=== PATIENT | male | born 1975 | race Caucasian/White ===

== ENCOUNTER 2021-01-10 09:23 | Outpatient (REF) | payer MEDICAID, SELFPAY ==
--- NOTE | ~2021-01-10 | XR_ITS ---
EXAMINATION: BILATERAL SHOULDER X-RAY CLINICAL INFORMATION: Pain COMPARISON: Previous x-rays August 2018 TECHNIQUE: 4 views of each shoulder FINDINGS: Right: Bone alignment is normal. No fracture or dislocation is seen. The glenohumeral joint is normal. There is mild arthritis at the acromioclavicular joint. Soft tissues are unremarkable. Left: Bone alignment is normal. No fracture or dislocation is seen. The joint spaces are normal. Soft tissues are normal. XR/XR shoulder LT min 2V IMPRESSION: Right: Mild arthritis at the acromioclavicular joint. Left: Unremarkable exam.
--- NOTE | ~2021-01-10 | XR_ITS ---
EXAMINATION: BILATERAL ELBOW X-RAY CLINICAL INFORMATION: Pain COMPARISON: None TECHNIQUE: 3 views of each elbow FINDINGS: Bone alignment is normal. No fracture or dislocation is seen. The joint spaces are normal. There is no joint effusion. XR/XR elbow RT min 3V IMPRESSION: Normal bilateral elbows.
--- NOTE | ~2021-01-10 | XR_ITS ---
EXAMINATION: XR CERVICAL SPINE CLINICAL INFORMATION: Worsening shoulder pain radiating to neck and elbow COMPARISON: None TECHNIQUE: 5 views of the cervical spine, inclusive of bilateral oblique views, were obtained. FINDINGS: There is mild curvature of the mid cervical spine to the right and lower cervical and upper thoracic spine to the left. Bone alignment is otherwise normal. No fracture or dislocation is seen. There is degenerative spondylosis and degenerative disc disease at C3-C4 and C6-C7. There is bilateral neuroforaminal narrowing at C3-C4 and mild right-sided neuroforaminal narrowing at C6-C7. Prevertebral soft tissues are normal.. XR/XR cervical spine min 6V IMPRESSION: Degenerative changes at C3-C4 and C6-C7. Mild curvature of the cervical spine.
--- NOTE | ~2021-01-10 | XR_ITS ---
EXAMINATION: BILATERAL ELBOW X-RAY CLINICAL INFORMATION: Pain COMPARISON: None TECHNIQUE: 3 views of each elbow FINDINGS: Bone alignment is normal. No fracture or dislocation is seen. The joint spaces are normal. There is no joint effusion. XR/XR elbow LT min 3V IMPRESSION: Normal bilateral elbows.
--- NOTE | ~2021-01-10 | XR_ITS ---
EXAMINATION: BILATERAL SHOULDER X-RAY CLINICAL INFORMATION: Pain COMPARISON: Previous x-rays August 2018 TECHNIQUE: 4 views of each shoulder FINDINGS: Right: Bone alignment is normal. No fracture or dislocation is seen. The glenohumeral joint is normal. There is mild arthritis at the acromioclavicular joint. Soft tissues are unremarkable. Left: Bone alignment is normal. No fracture or dislocation is seen. The joint spaces are normal. Soft tissues are normal. XR/XR shoulder RT min 2V IMPRESSION: Right: Mild arthritis at the acromioclavicular joint. Left: Unremarkable exam.
== END 2021-01-10 09:24 | disposition home or self-care (01) ==
LOC: HO.XRAY 09:23
PROVIDERS: PCP Family Medicine; Visit Provider Family Medicine
DX: M25.512 Pain in left shoulder (principal); M25.511 Pain in right shoulder; M54.2 Cervicalgia; M25.522 Pain in left elbow; M25.521 Pain in right elbow
CPT/HCPCS: 72052; 73030; 73080

== ENCOUNTER 2021-10-18 16:00 | Outpatient (RCR) | payer MEDICAID, SELFPAY | END 2021-11-03 16:11 | disposition home or self-care (01) | LOC: HO.PT 16:00 | PROVIDERS: PCP Family Medicine; Visit Provider Family Medicine | DX: M25.511 Pain in right shoulder (principal) | CPT/HCPCS: 97110; 97161 ==

== ENCOUNTER → 2023-02-20 13:12 | Outpatient (BNVA) | payer MEDICAID, SELFPAY | PROVIDERS: PCP Family Medicine; Visit Provider Physician Assistant | DX: Z12.11 Encounter for screening for malignant neoplasm of colon (principal); K21.9 Gastro-esophageal reflux disease without esophagitis; K59.09 Other constipation; F41.9 Anxiety disorder, unspecified | CPT/HCPCS: 99202; 99212 ==

== ENCOUNTER 2023-08-21 13:32 | Outpatient (REF) | payer MEDICAID, SELFPAY ==
[2023-08-21 16:10] LABS: MANUAL DIFF FLAG NO
[2023-08-21 16:14] LABS: Basophils Percent Auto 0.5 % (0-2); Eosinophils Absolute Auto 0.2 X10*3/uL (0.0-0.4); Eosinophils Percent Auto 2.7 % (0-4); Hematocrit 42.1 % (42.0-52.0); Hemoglobin 14.9 g/dl (14.0-18.0); Imm Gran Abs Auto 0.02 X10*3/uL (0.00-0.03); Imm Gran Pct Auto 0.2 % (0.0-0.4); Lymphocytes Absolute Auto 2.5 X10*3/uL (1.2-4.9); Lymphocytes Percent Auto 29.3 % (20-40); Mean Corpuscular HGB Conc 35.4 g/dl (31.0-36.0); Mean Corpuscular Hemoglobin 30.8 pg (27.0-33.0); Mean Corpuscular Volume 87.2 fL (80.0-98.0); Mean Platelet Volume 11.9 fL (9.4-12.4); Monocytes Absolute Auto 0.7 X10*3/uL (0.1-1.2); Monocytes Percent Auto 8.7 % (2-11); Neutrophils Percent Auto 58.6 % (45-73); Platelet Count 268 X10*3/uL (160-400); Red Blood Count 4.83 X10*6/uL (4.60-5.80); Red Cell Distribution Width 12.6 % (11.0-16.0); White Blood Count 8.5 X10*3/uL (4.8-10.8)
[2023-08-21 16:35] LABS: Alanine Aminotransferase 23 U/L (0-40); Albumin Level 4.5 g/dL (3.5-5.0); Alkaline Phosphatase 68 U/L (39-117); Anion Gap 13 (12-20); Aspartate Amino Transferase 17 U/L (5-37); Bilirubin Direct 0.2 mg/dL (0.0-0.5); Bilirubin Total 0.5 mg/dL (0.0-1.0); Blood Urea Nitrogen 16 mg/dL (9-16); Calcium 9.7 mg/dL (8.4-10.2); Carbon Dioxide 25 mmol/L (22-29); Chloride 106 mmol/L (96-108); Cholesterol 169 mg/dL (<200); Estimated Glomerular Filt Rate > 60; Glucose Random 102 mg/dL (60-115); HDL Cholesterol 39 mg/dL (>40); LDL Cholesterol Calculated 79 mg/dL (<100); Potassium 3.9 mmol/L (3.3-5.1); Sodium 140 mmol/L (135-145); Total Protein 7.5 g/dL (6.5-8.0); Triglycerides 256 mg/dL (<150)
[2023-08-21 16:46] LABS: Free T4 (Free Thyroxine) 0.97 ng/dL (0.71-1.85); Thyroid Stimulating Hormone 2.58 uIU/mL (0.32-4.0); Vitamin D 25-OH Total 71.8 ng/mL (>30)
[2023-08-21 16:48] LABS: Estimated Average Glucose 100 mg/dL; Hemoglobin A1c % 5.1 % (<6.0)
[2023-08-21 18:32] LABS: CT PCR NOT DETECTED (Not Detect.); NG PCR NOT DETECTED (Not Detect.)
[2023-08-22 07:55] LABS: Syphilis Screen Nonreactive (Nonreactive)
[2023-08-22 09:35] LABS: HIV AB/AG Nonreactive (Nonreactive); HIV Num 1 0.04 S/CO (0.00-0.99); ~HepC Num1 13.33 S/CO (0.00-0.79); ~Hepatitis C Antibody Reactive (Nonreactive)
[2023-08-26 15:08] LABS: HCV Log PCR <1.18 NOT DETECTED Log IU/mL (NOT DETECTED); HepC Viral Load <15 NOT DETECTED IU/mL (NOT DETECTED)
== END 2023-08-21 13:33 | disposition home or self-care (01) ==
LOC: HO.HHCL 13:32
PROVIDERS: Visit Provider Family Medicine
DX: Z00.00 Encounter for general adult medical examination without abnormal findings (principal)
CPT/HCPCS: 0353U; 80048; 80061; 80076; 82306; 83036; 84439; 84443; 85025; 86780; 86803; 87389; 87522

== ENCOUNTER 2024-01-08 06:46 | Day surgery (SDC) | payer MEDICAID, SELFPAY ==
[2024-01-02 14:10] VITALS: BMI 32.2
[2024-01-08 07:12] VITALS: BP 122/97; PULSE 67; RESP 18; TEMP 36.1; O2SAT 97; BMI 27.9
[2024-01-08] MEDS: Lactated Ringers 1,000 ML 50 ML IVCONT (07:29)
--- NOTE | 2024-01-08 07:48 | P.HPSUR_ITS ---
Pre-Procedural Eval Section A - 24 Hr Update-Section A only Date of Service: 01/08/24 Section B - Complete if H&P > 30 days Chief Complaint: constipation,gerd, Details of Present Illness: screening Relevant Family History (Specify if Yes): No Relevant Social History: Other (specify) (THC) Present Medications: see Short Stay Collaborative assessment Medical History: Significant History (anxiety, GERD) History of Previous Operations: No relevant previous surgery Allergies: Allergies Allergy/AdvReac Type Severity Reaction Status Date / Time penicillin V Allergy Unknown unknown Verified 02/20/23 13:17 Review of Systems Sugical H&P ROS: Negative: Constitution, Cardiovascular, Respiratory, Neurological, Psychiatric, Hem-Onc, Allergic/Immunologic, Gastrointestinal, Genitourinary, Musculoskeletal, Integumentary, Endocrine and Eyes/Ea rs/Nose/Throat Exam Surgical H&P Exam: Normal: HEENT, Normal: Heart, Normal: Lungs, Normal: Extremities, Normal: Abdomen, Normal: Skin and Normal: Neurological Plan Diagnosis/Plan: Unchanged I have reviewed the history and physical and performed a pertinent physical examination on my patient. No changes have occurred unless specified. Time Spent With Patient Time: Total time managing care of this patient today ____ minutes.
--- NOTE | 2024-01-08 08:09 | W.PM.OPN ---
Operative Note Operative Note Date of Service: 01/08/24 Narrative: Operative Information Procedure Description: EGD, Colonoscopy Indication: Screening, GERD Anesthesia: MAC FLEXIBLE TRANSORAL UPPER GASTROINTESTINAL ENDOSCOPY AND COLONOSCOPY PROCEDURE NOTE UPPER ENDOSCOPY Consent: Indications for the procedure and potential complications of bleeding, perforation, reaction to medications and missed diagnosis were discussed with the patient and informed consent was obtained. Instrument: Olympus GIF H 190 J mid size upper endoscope Monitoring: Vital signs and clinical assessment, continuous EKG monitoring, Pulse oximetry, Carbon Dioxide monitoring and blood pressure monitoring were done throughout the procedure. Procedure: The patient was placed in the left lateral decubitis position and pre-procedure medications were administered and a bite block was placed. The endoscope was inserted into the mouth and advanced under direct vision to the third part of duodenum. A careful inspection was made as the upper endoscope was withdrawn including a retroflexed examination of the proximal stomach; Findings and interventions are described below. Findings: Larynx:normal Esophagus: GE junction at 38 cm, diaphragm hiatus at 38 cm, possible short segment barretts with few islands of salmon pink tissue, bx taken from GEJ, and distal and proximal esophagus Stomach: Mild erythema, Biopsies were obtained. Grade 2 flap valve on retroflexed examination of the cardia. Duodenum: Normal bulb and descending duodenum, Intervention: Biopsies as noted above COLONOSCOPY Instrument: Olympus variable stiffness pediatric scope 190L Colonoscopy Monitoring: Vital signs and clinical assessment, continuous EKG monitoring, Pulse oximetry, Carbon Dioxide monitoring and blood pressure monitoring were done throughout the procedure. Colon withdrawal time was 8 minutes. Procedure: The patient was placed in the left lateral decubitis position and pre-procedure medications were administered. After a digital rectal examination of the ano-rectum, the video colonoscope was inserted into the rectum and advanced through the colon to the cecum/TI. The colonoscope was slowly withdrawn in a retrograde panoramic fashion and the colon mucosa was carefully examined including a retroflexed view of the rectum. Findings and interventions are described below. Procedure Difficulty:easy Findings: Terminal Ileum-normal Cecum:normal Right sided retroflexion- normal Ascending Colon: normal Transverse Colon -normal Descending Colon:normal Sigmoid Colon: mild to modertqae diverticulosis Rectum: Retroflexion with medium sized inflammed internal hemorrhoids, grade I Anorectum - normal Colon preparation: [place] Bowel Preparation Scale Right colon; 2 Transverse colon: 3 Left colon; 3 (0 = Unprepared colon segment with mucosa not seen due to solid stool that cannot be cleared. 1 = Portion of mucosa of the colon segment seen, but other areas of the colon segment not well seen due to staining, residual stool and/or opaque liquid. 2 = Minor amount of residual staining, small fragments of stool and/or opaque liquid, but mucosa of colon segment seen well. 3 = Entire mucosa of colon segment seen well with no residual staining, small fragments of stool or opaque liquid) Impression and Post Procedure Diagnosis: Endoscopy Findings: mild gastritis possible barretts Colonoscopy Findings: internal hemorrhoids diverticular disease Plan: Await Pathology results Repeat Colonoscopy in 10 years or earlier if clinically indicated High fiber diet leaflet avoid straining at stool, epsom salts and sitz bath, anusol supps or cream GERd precautions repeat EGD in 3-5 yrs if barretts confirmed Above findings were reviewed with the patient and relevant handouts were provided if indicated.
--- NOTE | 2024-01-08 08:10 | HO.ANESPROP2 ---
HPI - Anesthesia Eval Consult details Narrative: 48-year-old male presenting for routine colonoscopy screening. Daily marijuana smoking. On Vivitrol injection monthly. PMFSH Active Problems Active Problems: All Active Problems Chronic constipation (Acute) Anxiety (Acute) Encounter for screening colonoscopy (Acute) Acid reflux (Acute) Past Medical History Medical History Alcohol dependence Hepatitis C GERD (gastroesophageal reflux disease) Family History Family history of problems with anesthesia: No Surgical History History of Problems with Anesthesia: No Social History Social History Household Members: Family Alcohol intake: never Patient Tobacco Use Status: Former Tobacco user Are you DNR?: No Advance Directives: No Advance Directives Information Provided: Yes Meds Allergies Allergy/AdvReac Type Severity Reaction Status Date / Time penicillin V Allergy Unknown unknown Verified 02/20/23 13:17 Active Medications: Current Medications Lactated Ringer's (Lr) 1,000 mls @ 50 mls/hr IVCONT .Q20H MELISSA Last Admin: 01/08/24 07:29 Dose: 50 mls/hr Home Medications Medication Instructions Recorded Confirmed Last Taken Type omeprazole 20 mg capsule,delayed 20 mg PO DAILY 02/20/23 02/20/23 01/08/24 History release emtricitabine 200 mg-tenofovir 1 tab PO QAM 01/08/24 01/08/24 Unknown History alafenamide fumarate 25 mg tablet (Descovy) naltrexone microspheres 380 mg 4 IM Q4W 01/08/24 01/08/24 Unknown History intramuscular suspension,extended release (Vivitrol) quetiapine 25 mg tablet 25 mg PO BEDTIME 01/08/24 01/08/24 Unknown History Exam Height,Weight and Vital Signs: Height 5 ft 3 in Weight 157 lb 4.8 oz Last Vital Signs Temp 97 F 01/08/24 07:12 Pulse 67 01/08/24 07:12 Resp 18 01/08/24 07:12 BP 122/97 H 01/08/24 07:12 Pulse Ox 97 01/08/24 07:12 O2 Del Method Room Air 01/08/24 07:12 Airway Mallampati Class: II TM Dist: >3cm Neck ROM: Full Loose/Missing/Broken Teeth: No Assessment and Plan Assessment Anesthesia Assessment: Anesthesia Plan Discussed and Chart Reviewed Final Anesthetic Review Family History of Problems with Anesthesia: No History of Problems with Anesthesia: No NPO: Yes ASA Class: II Final Preanesthetic Review: No Changes in Pt Med Stat, Meds/Allgs Chart Reviewed, Consent Obtained/Reviewed and Anes Risks/Benef Reviewed Patient Risk: Low Procedure Risk: Low Anesthetic Plan Anesthetic Plan: MAC: Disposition: Standard PACU
[2024-01-08 08:42] VITALS: BP 93/57; PULSE 66; RESP 17; TEMP 36.9; O2SAT 99
[2024-01-08 08:57] VITALS: BP 96/66; PULSE 57; RESP 17; O2SAT 99
[2024-01-08 09:12] VITALS: BP 99/72; PULSE 58; RESP 18; TEMP 37; O2SAT 95
[2024-01-08 09:27] VITALS: BP 100/74; PULSE 56; RESP 16; TEMP 36.1; O2SAT 98
== END 2024-01-08 09:52 | disposition home or self-care (01) ==
PROVIDERS: PCP Family Medicine; Visit Provider Internal Medicine Gastroenterology
PROC: (CPT 45378; principal; 2024-01-08 08:40)
DX: Z12.11 Encounter for screening for malignant neoplasm of colon (principal); K59.09 Other constipation; K62.5 Hemorrhage of anus and rectum; K57.30 Diverticulosis of large intestine without perforation or abscess without bleeding; K64.0 First degree hemorrhoids; K21.9 Gastro-esophageal reflux disease without esophagitis; K29.60 Other gastritis without bleeding; Q39.8 Other congenital malformations of esophagus; K44.9 Diaphragmatic hernia without obstruction or gangrene; F41.9 Anxiety disorder, unspecified; Z79.899 Other long term (current) drug therapy; Z88.0 Allergy status to penicillin; F17.210 Nicotine dependence, cigarettes, uncomplicated
CPT/HCPCS: 45378; 43239; 88305; 88313; 88342; J2704

== ENCOUNTER → 2024-01-08 06:46 | Outpatient (BNV) | payer MEDICAID, SELFPAY | PROVIDERS: PCP Family Medicine; Visit Provider Internal Medicine Gastroenterology | DX: K29.70 Gastritis, unspecified, without bleeding (principal); K22.70 Barrett's esophagus without dysplasia; K57.90 Diverticulosis of intestine, part unspecified, without perforation or abscess without bleeding; K64.8 Other hemorrhoids | CPT/HCPCS: 43239; 45378 ==

== ENCOUNTER 2024-01-22 14:20 | Outpatient (AMB) | payer MEDICAID, SELFPAY ==
--- NOTE | 2024-01-22 14:24 | A.OFFVIS_ITS ---
Intake Vital Signs 01/22/24 14:28 Weight 165 lb BP 139/92 H Blood Pressure Location Lt brachial Position Sitting Pulse 93 Intake Visit Reasons: S/P Double; Dr. Sweeney Intake Note: Patient follow up for EGD/Colonoscopy results. Patient cc: beteen diarrhea and constipation, denies any other GI issues. Webmaster Required: No Accompanied by: Self / Same As Patient Allergies penicillin V Allergy (Unknown, Verified 02/20/23 13:17) unknown Medication List - Last Reconciled 01/22/24 by Becki Lloyd PA-C emtricitabine-tenofovir alafen 200-25 mg (Descovy) 1 tab PO QAM naltrexone microspheres ER (Vivitrol) 4 IM Q4W omeprazole 20 mg PO DAILY quetiapine 25 mg PO BEDTIME HPI HPI Comments History of Present Illness Details 48-year-old male follows up after recent EGD and colonoscopy with biopsies. Tolerated procedures well He has persistent acid reflux unsure what triggers his symptoms He has a normal bowel pattern he uses Citrucel daily with very good response Reviewed procedure report, pathology as well as recommended Has a nausea, vomiting hematemesis, hematochezia fever chills PFSH Medical History (Updated 01/22/24 @ 14:42 by Becki Lloyd PA-C) Alcohol dependence Hepatitis C GERD (gastroesophageal reflux disease) Surgical History Hx of colonoscopy History of esophagogastroduodenoscopy (EGD) Social History (Updated 01/22/24 @ 14:43 by Becki Lloyd PA-C) Household Members: Family Alcohol intake: never Patient Tobacco Use Status: Former Tobacco user Substance Use Type: Marijuana Review of Systems Const Details: All other systems reviewed and are negative Card Denies chest pain and Denies dyspnea Resp Denies dyspnea GI Reports heartburn Physical Exam Vital Signs: Last Vital Signs Pulse 93 01/22/24 14:28 BP 139/92 H 01/22/24 14:28 Const General: cooperative, healthy appearing, comfortable and no acute distress Orientation/consciousness: patient oriented x3 Limitations: no limitations Resp Effort & Inspection: normal respiratory effort and able to speak in complete sentences Neuro General: patient oriented x3 Extrem General: Yes full ROM Psych Appearance: grossly normal and well kempt Mental Status: mental status grossly normal Speech and movement: Normal speech and movement present Affect: normal affect and Anxious affect present Attitude: cooperative Thought process: Normal thought process present Thought content: Normal thought content present Insight: Good insight present (Psych) Judgement: Good judgement present (Psych) Results Reviewed Results Reviewed: Endoscopy Findings: mild gastritis possible barretts Colonoscopy Findings: internal hemorrhoids diverticular disease Plan: Await Pathology results Repeat Colonoscopy in 10 years or earlier if clinically indicated High fiber diet leaflet avoid straining at stool, epsom salts and sitz bath, anusol supps or cream GERd precautions repeat EGD in 3-5 yrs if barretts confirmed Above findings were reviewed with the patient and relevant handouts were provided if indicated. padmaja: Eddie Worthington Age/Sex: 48/M Attending: Kacie Sweeney MD : 1975 Submitted by: Kacie Sweeney MD Copies to: Amparo Interianonifarzana Haynes DO MR #: [id number] Status: [facility] Collected: 01/08/24 Location: [facility] [[email or web address]] Received: 01/08/24 Diagnosis A. Stomach, biopsy: Antral-type mucosa with moderate chronic, focally active, inflammation; no Helicobacter organisms seen. B. GE junction, biopsy: - Cardiofundic-type mucosa with moderate chronic inactive inflammation; no intestinal metaplasia seen. - Squamous epithelium within normal limits. C. Esophagus, distal, biopsy: Squamous epithelium within normal limits; no inflammation seen. D. Esophagus, proximal, biopsy: Squamous epithelium within normal limits; no inflammation seen. Assessment & Plan Assessment & Plan (1) Diverticulosis of colon: Code(s): K57.30 - Diverticulosis of large intestine without perforation or abscess without bleeding Plan: Maintain high-fiber diet ER protocol (2) Acid reflux: Comment: Reviewed reflux precautions, to include weight gain, avoid culprits Continue PPI remain upright 2-3 hours after meals Code(s): K21.9 - Gastro-esophageal reflux disease without esophagitis Plan: Continue PPI daily Avoid culprits Medications: New methylcellulose (laxative) (Citrucel) 500 mg PO BID 30 days 60 tabs 10RF Patient Instructions: Reviewed procedure report, pathology and recommendation Continue PPI daily Reflux precautions, avoid culprits Continue Citrucel Diverticulosis/diverticulitis ER protocol reviewed opportunity for questions Repeat asymptomatic colonoscopy 10 years Coding Level of Care Code Est Pt Level 3 (32784) Diagnoses Diverticulosis of colon K57.30 Acid reflux K21.9 Time Spent (min) 30
[2024-01-22 14:28] VITALS: BP 139/92; PULSE 93
== END 2024-01-22 15:51 | disposition home or self-care (01) ==
PROVIDERS: PCP Family Medicine; Visit Provider Physician Assistant
DX: K57.30 Diverticulosis of large intestine without perforation or abscess without bleeding (principal); K21.9 Gastro-esophageal reflux disease without esophagitis
CPT/HCPCS: 99213

== ENCOUNTER → 2024-01-22 14:20 | Outpatient (BNVA) | payer MEDICAID, SELFPAY | PROVIDERS: PCP Family Medicine; Visit Provider Physician Assistant | DX: K57.30 Diverticulosis of large intestine without perforation or abscess without bleeding (principal); K21.9 Gastro-esophageal reflux disease without esophagitis | CPT/HCPCS: 99212 ==

== ENCOUNTER 2024-02-15 09:20 | Outpatient (AMB) | payer MEDICAID, SELFPAY ==
--- NOTE | 2024-02-15 09:21 | MHC.OFFVIS ---
Intake Intake Visit Reasons: LDCT SD Allergies penicillin V Allergy (Unknown, Verified 02/20/23 13:17) unknown HPI HPI Comments History of Present Illness Details Holger is a pleasant 48 year old male former smoker with a 33 PYH, quit May 2023. Patient has been smoking since age 14 for 33 years at 1 ppd. Admits marijuana use. Denies exposure to chemicals or substances like asbestos. Denies second hand smoke exposure. Denies known family history of lung cancer. Denies personal history of cancers. Denies chest CT in last year. Denies recent travel outside the [place]. Denies testing positive for COVID. Admits receiving COVID Vaccine. Denies fever, chills, chest pain, new cough, hemoptysis or unintentional weight loss. Lung Cancer Screening Questionnaire reviewed with patient by provider. Shared Decision Making Completed. Discussed in detail with patient, the risk versus benefit of LDCT screening. Patient in agreement of proceeding with scan. [facility] Medical History (Updated 01/22/24 @ 14:42 by Bekci Lloyd PA-C) Alcohol dependence Hepatitis C GERD (gastroesophageal reflux disease) Surgical History Hx of colonoscopy History of esophagogastroduodenoscopy (EGD) Social History (Updated 02/15/24 @ 09:39 by Violeta Ness NP) Household Members: Family Alcohol intake: never Patient Tobacco Use Status: Former Tobacco user Years Smoked: 33 x 1 ppd, quit 06/10 Substance Use Type: Marijuana Assessment & Plan Assessment & Plan (1) Personal history of tobacco use: Code(s): Z87.891 - Personal history of nicotine dependence Plan Shared decision-making visit completed today in office. This patient meets criteria for LDCT for lung cancer screening purposes and is asymptomatic. Patient has been scheduled for a low dose chest CT for screening purposes at [facility]. We discussed how the results will be obtained depending on CT findings. RADS 1 and RADS 2 will receive a letter with results and will follow up for annual LDCT. Patient informed they will be contacted at later date to schedule upcoming LDCT scan. RADS 3 and RADS 4 will receive a telephone call, or an office visit after reviewing case at our Lung Cancer Conference to determine when the next LDCT will be scheduled or further interventions that may be needed. Discussed importance of screening program and compliance with yearly LDCT scan as scheduled. Risks, benefits, and alternatives were discussed in detail and patient agrees to proceed. Risks discussed include but are not limited to: radiation exposure and possibility of additional intervention for benign disease. Benefits include detection of lung cancer at an early stage. A copy of today's visit and LDCT results will be sent to patient's PCP. Incidental findings on LDCT are PCP's responsibility. If there are incidental findings, our office will ensure that PCP office is aware of these findings. All questions were answered and patient is in agreement of plan. Coding Level of Care Code Lung Cancer Screening G0296 Diagnoses Personal history of tobacco use Z87.891
== END 2024-02-15 09:31 | disposition home or self-care (01) ==
PROVIDERS: PCP Family Medicine; Referring Provider Family Medicine; Visit Provider Nurse Practitioner Family
DX: Z87.891 Personal history of nicotine dependence (principal)
CPT/HCPCS: G0296

== ENCOUNTER 2024-02-15 09:32 | Outpatient (REF) | payer MEDICAID, SELFPAY ==
--- NOTE | ~2024-02-15 | CT_ITS ---
EXAMINATION: CT CHEST SCREENING CLINICAL INFORMATION: Nonsmoker. Quit 1 year ago. Ex-smoker 1 pack per day. COMPARISON: None available. TECHNIQUE: Multidetector volumetric CT imaging of the chest is performed without contrast using low dose technique. Additional 2D coronal and sagittal reformatted images and axial 3D maximum intensity projection (MIP) images are generated on the CT workstation. This CT examination was performed using dose optimization techniques as appropriate, variously including the following: *Automated exposure control. *Adjustment of mA and/or kV according to patient size (this includes techniques or standardized protocols for targeted exams where dose is matched to indication/reason for exam; i.e. extremities or head). *Use of iterative reconstruction technique. DLP: 43 mGy-cm FINDINGS: LUNGS: Emphysematous changes are present along with moderate diffuse bronchial wall thickening. Multiple small pulmonary nodules are present and ballard images of all have been saved. Largest nodules are 4 mm in the right lower lobe (5:326) as well as 3 mm in the right upper lobe along the major fissure (5:202). No worrisome or concerning pulmonary nodules are seen. MEDIASTINUM: The mediastinum is normal. CORONARY ARTERY CALCIFICATION: None visualized on this study. PLEURA: There is no pleural effusion. No pleural mass or thickening. AXILLA: No lymphadenopathy. UPPER ABDOMEN: Diaphragmatic hernia is seen containing only fat. OSSEOUS STRUCTURES: Thoracic kyphosis is present. No bony destructive lesions. CT/CT lung screening IMPRESSION: Benign-appearing lung nodules with underlying emphysema and bronchial thickening. No findings seen to suggest malignancy. ASSESSMENT: Lung-RADS category 2: Benign. RECOMMENDATION: Routine annual low-dose CT screening in 12 months.
== END 2024-02-15 09:33 | disposition home or self-care (01) ==
LOC: HO.CT 09:32
PROVIDERS: PCP Family Medicine; Visit Provider Nurse Practitioner Family
DX: Z12.2 Encounter for screening for malignant neoplasm of respiratory organs (principal); Z87.891 Personal history of nicotine dependence
CPT/HCPCS: 71271; G0296

== ENCOUNTER 2024-08-07 15:25 | Outpatient (REF) | payer OTHER, SELFPAY ==
[2024-08-07 16:32] LABS: Hematocrit 41.7 % (42.0-52.0); Hemoglobin 14.9 g/dl (14.0-18.0); Mean Corpuscular HGB Conc 35.7 g/dl (31.0-36.0); Mean Corpuscular Hemoglobin 30.3 pg (27.0-33.0); Mean Corpuscular Volume 84.9 fL (80.0-98.0); Mean Platelet Volume 10.8 fL (9.4-12.4); Platelet Count 266 X10*3/uL (160-400); Red Blood Count 4.91 X10*6/uL (4.60-5.80); Red Cell Distribution Width 12.6 % (11.0-16.0); White Blood Count 8.5 X10*3/uL (4.8-10.8)
[2024-08-07 16:42] LABS: Estimated Average Glucose 100 mg/dL; Hemoglobin A1c % 5.1 % (<6.0)
[2024-08-07 16:59] LABS: Alanine Aminotransferase 29 U/L (0-40); Albumin Level 4.7 g/dL (3.5-5.0); Alkaline Phosphatase 66 U/L (39-117); Anion Gap 13 (12-20); Aspartate Amino Transferase 26 U/L (5-37); Bilirubin Direct 0.2 mg/dL (0.0-0.5); Bilirubin Total 0.5 mg/dL (0.0-1.0); Blood Urea Nitrogen 16 mg/dL (9-16); Calcium 9.6 mg/dL (8.4-10.2); Carbon Dioxide 23 mmol/L (22-29); Chloride 106 mmol/L (96-108); Estimated Glomerular Filt Rate > 60; Glucose Random 89 mg/dL (60-115); Potassium 3.5 mmol/L (3.3-5.1); Sodium 138 mmol/L (135-145)
[2024-08-07 17:15] LABS: Free T4 (Free Thyroxine) 1.28 ng/dL (0.71-1.85); Thyroid Stimulating Hormone 2.08 uIU/mL (0.32-4.0); Vitamin D 25-OH Total 51.1 ng/mL (>30)
[2024-08-08 08:14] LABS: Syphilis Screen Nonreactive (Nonreactive)
[2024-08-08 08:23] LABS: Hepatitis A Antibody IgG REACTIVE (Nonreactive)
[2024-08-08 08:53] LABS: HBS Num1 231.59 mIU/mL (0-7.99); HBc Num1 0.12 S/CO (0.00-0.79); HBsAGNum1 0.35 S/CO (0.00-0.99); HIV AB/AG Nonreactive (Nonreactive); HIV Num 1 0.04 S/CO (0.00-0.99); Hepatitis B Core Antibody Nonreactive (Nonreactive); Hepatitis B Surface Antigen Negative (Negative); ~HepC Num1 13.71 S/CO (0.00-0.79); ~Hepatitis B Surface Antibody REACTIVE (Nonreactive); ~Hepatitis C Antibody Reactive (Nonreactive)
[2024-08-09 12:39] LABS: HIV RNA PCR Qn Copies NOT DETECTED copies/mL (NOT DETECTED); HIV RNA PCR Qn Log Copies NOT DETECTED (NOT DETECTED)
[2024-08-11 11:23] LABS: HCV Log PCR <1.18 NOT DETECTED Log IU/mL (NOT DETECTED); HepC Viral Load <15 NOT DETECTED IU/mL (NOT DETECTED)
[2024-08-11 11:48] LABS: RPR Rapid Plasma Reagin NON-REACTIVE (NON-REACTIVE)
== END 2024-08-07 15:26 | disposition home or self-care (01) ==
LOC: HO.HHCL 15:25
PROVIDERS: Visit Provider Family Medicine
DX: Z00.00 Encounter for general adult medical examination without abnormal findings (principal); Z11.3 Encounter for screening for infections with a predominantly sexual mode of transmission; L91.8 Other hypertrophic disorders of the skin; F17.200 Nicotine dependence, unspecified, uncomplicated; M25.512 Pain in left shoulder; G89.29 Other chronic pain; M25.511 Pain in right shoulder; K59.09 Other constipation; K21.9 Gastro-esophageal reflux disease without esophagitis; F10.21 Alcohol dependence, in remission; F39 Unspecified mood [affective] disorder
CPT/HCPCS: 36415; 80048; 80076; 82306; 83036; 84439; 84443; 85027; 86592; 86704; 86706; 86708; 86780; 86803; 87340; 87389; 87522; 87536

== ENCOUNTER 2024-09-05 09:22 | Outpatient (REF) | payer MEDICAID, SELFPAY ==
[2024-09-05 12:38] LABS: Cholesterol 151 mg/dL (<200); HDL Cholesterol 46 mg/dL (>40); LDL Cholesterol Calculated 77 mg/dL (<100); Triglycerides 141 mg/dL (<150)
== END 2024-09-05 09:23 | disposition home or self-care (01) ==
LOC: HO.CHCLDS 09:22
PROVIDERS: Visit Provider Family Medicine
DX: Z00.00 Encounter for general adult medical examination without abnormal findings (principal); F39 Unspecified mood [affective] disorder; F10.21 Alcohol dependence, in remission; K21.9 Gastro-esophageal reflux disease without esophagitis; K59.09 Other constipation; L91.8 Other hypertrophic disorders of the skin; F17.200 Nicotine dependence, unspecified, uncomplicated
CPT/HCPCS: 36415; 80061

== ENCOUNTER → 2025-04-06 13:57 | Outpatient (REF) | payer OTHER, SELFPAY ==
--- OUTSIDE RECORDS SUMMARY | 2025-04-06 14:00 | XMS_ITS | Encounter Summary ---
Author Organization [employer] Address [address] [place] [address] [address] [place] [address] Care Team Providers Care Fiscal Assistant Name Role Phone Gracia Interiano DO Primary Care Provider + [phone] Heath Mae Unavailable Unavailable Reason for Visit * Reason Onset Date Comments triage 10/31/2022 Encounter Details Date Type Department Care Team ([facility] st Contact Info) Description 10/31/[address] [facility] MEDICINE [address] [place], [place] [phone] Gracia Interiano DO [address] [place] [phone] triage Social History Tobacco Use Types Packs/Day Years Used Date Smoking Tobacco: Former Cigarettes Smokeless Tobacco: Former Alcohol Use Standard Drinks/Week Comments Never 0 (1 standard drink = 0.6 oz pur e alcohol) PHQ-2 Answer Date Recorded Patient Health Questionnaire-2 Score 0 10/23/2022 Sex and Gender Information Value Date Recorded Sex Assigned at Male 09/18/2022 10:22 AM EDT Legal Sex Male 10:22 AM EDT Gender Identity Male 12/28/2022 3:03 PM EST Sexual Orientation Lesbian or Peters 02/26/2023 1: 29 PM EDT COVID-19 Exposure Response Date Recorded In the last 10 days, have yo u been in contact with someone who was confirmed or suspected to have Coronavirus/COVID-19? No / Unsure 10/23/2022 9:12 AM EST documented as of this encounter Miscellaneous Notes * Telephone Encounter - Shantal Araiza RN - 10/31/2022 5:26 PM EST Call returned to patient for triage. No answer LVM to return call to [facility] triage line. * Telephone Encounter - Starla Bruner - 10/31/2022 3:00 PM EST Symptom: Skin Lump Outcome: Schedule an appointment to be seen within 3 days Reason: No high acuity concerns reported by caller The caller accepted this outcome documented in this encounter Plan of Treatment Upcoming Encounters Date Type Department Care Team (Late st Contact Info) Description 04/07/2025 8:30 AM EDT Office Visit [facility] MEDICINE [address] [place] [address] Duane Angel MD [address] [place] [phone] 04/07/2025 2:00 PM EDT Office Visit [facility] DENTAL [address] [place] [address] Monica Arevalo [address] [place] [address] 04/30/2025 2:00 PM EDT Office Visit [facility] DENTAL [address] [place] [phone] Nia Brown BDS [address] [place], [place] [phone] 06/26/2025 11:00 AM EDT Office Visit [facility] MEDICINE [address] [place] [address] Parul Felder MD [address] [place] [phone] documented as of this encounter Visit Diagnoses Not on filedocumented in this encounter Care Teams Fiscal Assistant Relationship Specialty Start Date End Date Gracia Interiano DO [address] [place] [id number] PCP - General Family Medicine 02/01/12 Heath Mae FNP [address] [place] [id number] Nurse Practitioner Family Medicine 10/18/23 documented as of this encounter
--- OUTSIDE RECORDS SUMMARY | 2025-04-06 14:00 | XMS_ITS | Encounter Summary ---
Author Organization [employer] Address [address] [facility] [address] [place] [address] Care Team Providers Care Television Script Writer Name Role Phone LaishaGracia Primary Care Provider + [phone] Heath Mae Unavailable Unavailable Encounter Details Date Type Department Care Team (Late st Contact Info) Description 01/22/2025 Orders Only [facility] MED & PEDS [address] [place] [address] Provider, MD Kari Social History Tobacco Use Types Packs/Day Years Used Date Smoking Tobacco: Former Cigarettes Passive Smoke Exposure: Past Smokeless Tobacco: Former Alcohol Use Standard Drinks/Week Comments Never 0 (1 standard drink = 0.6 oz pur e alcohol) Depression Answer Date Recorded Patient Health Questionnaire-9 Score 3 05/12/2024 Patient Health Questionnaire-9 Score 3 05/12/2024 Last PHQ-9: Questionnaire Data Not on file 0 05/12/2024 Housing Stability Answer Date Recorded What is your housing situation today? I have jairo saba 09/06/[address] you li ve. Do you have problems with any of the following? None of the above 09/06/2023 Food Insecurity Answer Date Recorded Within the past 12 months, y ou worried that your food would run out before you got money to buy more: Never True 09/06/2023 Within the past 12 months,th e food you bought just didn't last and you didn't have enough money to get more: Never True Transportation Answer Date Recorded In the past 12 months, has l ack of transportation kept you from medical appts, meetings, work or from getting things needed for daily living? No 09/06/2023 Utilities Answer Date Recorded In the past 12 months, has t he electric, gas, oil or water company threatened to shut off services in your home? No 09/06/2023 Depression Answer Date Recorded Patient Health Questionnaire-2 Score 0 05/12/2024 Sex and Gender Information Value Date Recorded Sex Assigned at Male 09/18/2022 10:22 AM EDT Legal Sex Male 10:22 AM EDT Gender Identity Male 12/28/2022 3:03 PM EST Sexual Orientation Lesbian or Peters 02/26/2023 1: 29 PM EDT documented as of this encounter Plan of Treatment Upcoming Encounters Date Type Department Care Team (Late st Contact Info) Description 04/07/2025 8:30 AM EDT Office Visit [facility] MEDICINE [address] [place] [id number] Duane Angel MD [address] [place] [address] 04/07/2025 2:00 PM EDT Office Visit [facility] [address] [place] [address] Monica Arevalo [address] [place] [address] 04/30/2025 2:00 PM EDT Office Visit [facility] [address] [place] [address] Nia Brown BDS [address] [place] [address] 06/26/2025 11:00 AM EDT Office Visit [facility] MEDICINE [address] [place] [phone] Parul Felder MD [address] [place] [address] documented as of this encounter Procedures Procedure Name Priority Date/Time Associated Diagnosis Comments HM COLONOSCOPY Routine 01/08/2024 1:38 PM EST documented in this encounter Results * Hm Colonoscopy (01/08/2024 1:38 PM EST) Historical Provider HEALTH MAINTENANCE Final Result documented in this encounter Visit Diagnoses Not on filedocumented in this encounter Additional Health Concerns Assessment Noted Time PHQ-9 Depression Total Score: 3 05/12/20 24 4:01 PM EDT documented as of this encounter Care Teams Television Script Writer Relationship Specialty Start Date End Date Gracia Interiano DO [address] [place] [address] PCP - General Family Medicine 02/01/12 Heath Mae FNP [address] [place] [address] Nurse Practitioner Family Medicine 10/18/23 documented as of this encounter
--- OUTSIDE RECORDS SUMMARY | 2025-04-06 14:00 | XMS_ITS | Encounter Summary ---
Author Organization [employer] Address [address] [facility] [address] [place] [address] Care Team Providers Care Home Care Coordinator Name Role Phone ValerieGracia joseph Primary Care Provider + [phone] Heath Mae Unavailable Unavailable Reason for Visit * Reason Onset Date Comments Med Refill 02/26/2023 Encounter Details Date Type Department Care Team (Late st Contact Info) Description 02/26/2023 Telephone [facility] [address] [place], [place] [phone] Jo-Ann Tamez BDZee Med Refill Social History Tobacco Use Types Packs/Day Years Used Date Smoking Tobacco: Former Cigarettes Smokeless Tobacco: Former Alcohol Use Standard Drinks/Week Comments Never 0 (1 standard drink = 0.6 oz pur e alcohol) PHQ-2 Answer Date Recorded Patient Health Questionnaire-2 Score 0 02/19/2023 Sex and Gender Information Value Date Recorded [...] suspected to have Coronavirus/COVID-19? No / Unsure 02/26/2023 1:15 PM EDT documented as of this encounter Miscellaneous Notes * Telephone Encounter - Aleida Raman - 02/26/2023 3:33 PM EDT Patient says expecting script to be sent in to pharmacy and no script sent as of yet. Pls advise. documented in this encounter Plan of Treatment Upcoming Encounters Date Type Department Care Team (Late st Contact Info) Description 04/07/2025 8:30 AM EDT Office Visit [facility] MEDICINE [address] [place] [address] Duane Angel MD [address] [place] [address] 04/07/2025 2:00 PM EDT Office Visit [facility] [address] [place] [address] Monica Arevalo [address] [place] [address] 04/30/2025 2:00 PM EDT Office Visit [facility] [address] [place] [address] Nia Brown, BDS [address] [place] [address] 06/26/2025 11:00 AM EDT Office Visit [facility] MEDICINE [address] [place] [address] Parul Felder MD [address] [place] [address] documented as of this encounter Visit Diagnoses Not on filedocumented in this encounter Additional Health Concerns Assessment Noted Time PHQ-9 Depression Total Score: 3 02/20/20 23 1:47 PM EDT documented as of this encounter Care Teams Home Care Coordinator Relationship Specialty Start Date End Date Gracia Interiano DO [address] [place] [address] PCP - General Family Medicine 02/01/12 Heath Mae FNP [address] [place] [id number] Nurse Practitioner Family Medicine 10/18/23 documented as of this encounter
--- OUTSIDE RECORDS SUMMARY | 2025-04-06 14:00 | XMS_ITS | Clinical Summary ---
Author Organization [employer] Address [address] [facility] [address] [place] [address] Care Team Providers Care Organ Installer Name Role Phone ValerieGracia joseph Primary Care Provider [phone] Heath Mae Unavailable Unavailable Allergies Active Allergy Reactions Criticality Noted Date Comments Penicillins 08/11/2013 Medications * This document contains information received from the source organization and may not represent a complete record from that organization. ketoconazole (Nizoral) 2 % shampoo Apply topically 2 (two) times a week. 240 mL 3 08/20/20 23 Active baclofen (Lioresal) 10 MG tabletIndications :Chronic pain of both shoulders Take 1 tablet (10 mg) by mouth if needed in the morning, at noon, and at bedtime for muscle spasms. 60 tablet 1 02/19/20 24 Active Diclofenac Sodium 1 % gel Apply 2 g topically if needed in the morning, at noon, in the evening, and at bedtime (pain). 150 g 3 02/19/20 24 Active Fluocinolone Acetonide Scalp ([place]-Smoothe/FS Scalp) 0.01 % oilIndications:Se borrheic dermatitis Apply at night 2-3 times weekly 118.28 mL 3 09/05/20 24 Active hydrocortisone 2.5 % creamIndications: Seborrheic dermatitis Apply topically Once daily as needed for rash or irritation. Face rash 28 g 1 09/05/20 24 Active omeprazole (PriLOSEC) [address] capsuleIndication s:Gastroesophagea l reflux disease, unspecified whether esophagitis present TAKE 1 CAPSULE BY MOUTH TWICE DAILY BEFORE BREAKFAST AND BEFORE SUPPER 180 capsule 09/08/20 24 Active naltrexone ER (Vivitrol) injectionIndicati ons:Uncomplicated alcohol dependence (CMS/HCC) Inject 4 mL (380 mg) into the muscle every 28 (twenty-eigh t) days. 1 each 5 10/21/20 24 2024 Active naproxen (Naprosyn) 500 MG tablet Take 1 tablet (500 mg) by mouth if needed in the morning and at bedtime for mild pain. 40 tablet 02/10/20 Active Citrucel 500 MG tablet Take 1 tablet by mouth 2 times daily. 60 tablet 11 02/10/20 25 2025 Active docusate sodium (Colace) 100 MG capsule Take 1 capsule (100 mg) by mouth 2 times daily. 60 capsule 02/10/20 25 2025 Active Descovy 200-25 MG tabletIndications :Possible exposure to STD TAKE 1 TABLET BY MOUTH EVERY MORNING 30 tablet 2 02/27/20 25 Active QUEtiapine (SEROquel) 50 MG tabletIndications :Auditory hallucinations Take 1 tablet (50 mg) by mouth in the morning. Take with Seroquel 25 mg in the morning. 30 tablet 1 03/10/20 25 2024 Active QUEtiapine (SEROquel) 25 MG tabletIndications :Auditory hallucinations Take 1 tablet (25 mg) by mouth in the morning. Take with Seroquel 50 mg in the morning. 30 tablet 1 03/10/20 25 2024 Active QUEtiapine (SEROquel) 100 MG tabletIndications :Auditory hallucinations Take 1 tablet (100 mg) by mouth at bedtime. 30 tablet 1 03/10/20 25 2024 Active QUEtiapine (SEROquel) 50 MG tabletIndications :Auditory hallucinations Take 1 tablet (50 mg) by mouth in the morning. Take with Seroquel 25 mg in the morning. 30 tablet 1 01/21/20 25 2024 Discontinued(R eorder (will not trigger notification to Pharmacy)) QUEtiapine (SEROquel) 25 MG tabletIndications :Auditory hallucinations Take 1 tablet (25 mg) by mouth in the morning. Take with Seroquel 50 mg in the morning. 30 tablet 1 01/21/20 25 2024 Discontinued(R eorder (will not trigger notification to Pharmacy)) QUEtiapine (SEROquel) 100 MG tabletIndications :Auditory hallucinations Take 1 tablet (100 mg) by mouth at bedtime. 30 tablet 1 01/21/20 25 2024 Discontinued(R eorder (will not trigger notification to Pharmacy)) Hospital, Clinic, or Other Facility Administered Medication Ordered Dose Route Frequency Start Date End Date Status naltrexone ER (Vivitrol) injection 380 mgIndications:Alcohol use disorder, severe, in sustained remission (CMS/HCC) 380 mg IM Every 28 days 09/23/2024 07/28/2025 Active naltrexone ER (Vivitrol) injection 380 mgIndications:Alcohol use disorder, severe, in sustained remission (CMS/HCC) 380 mg IM Once 03/10/2025 03/10/2025 Ended Active Problems Problem Noted Date Diagnosed Date Diverticulosis 02/19/2024 BMI 34.0-34.9,adult 02/19/2024 Healthcare maintenance 02/19/2024 Assessment & Plan (02/19/2024 2:18 PM EDT): -s/p flu vaccine Aug 2023 -s/p COVID vaccine AUG 2023 -s/p Tdap vaccine Jul 2012 -Td today -s/p pneumovax Dec 2011 -PCV20 today -Hep B immune -colonoscopy with diverticulosis DEC 2023 -A1c 5.1%, LDL Aug -STI/HIV screen negative AUG 2023 -cont PrEP daily Chronic constipation 08/20/2023 Assessment & Plan (02/19/2024 2:15 PM EDT): Sx significantly improved -colonoscopy with diverticulosis DEC 2023 -encouraged fiber supplementation BID -continue colace prn -f/u with GI as needed Chronic pain of both shoulders 08/20/2023 Assessment & Plan (02/19/2024 2:15 PM EDT): with intermittent flaring -R shoulder XR with mild arthritis Dec 2020 -L shoulder XR unremarkable Dec 2020 -C-spine XR with mild curvature, degenerative spondylosis and DDD with bilateral neuroforaminal narrowing DEC 2020 -cont naproxen and baclofen as needed -he declines PT or ortho at this time -advised contact [facility] if sx worsen Alcohol use disorder, severe, in sustained remis [place] 03/05/2023 Assessment & Plan (02/19/2024 2:12 PM EDT): -congratulated pt for continued sobriety -cont vivitrol monthly -f/u with Dr. Angel as scheduled Auditory hallucinations 01/29/2023 Assessment & Plan (10/18/2023 3:28 PM EST): Presented with auditory hallucinations with some anxiety, without other significant mood symptoms. Symptoms began October 2022, without obvious triggering factor. Patient has been abstinent of alcohol, does use Marijuana. Had good response to Abilify 5 mg daily, then hallucinations recurred and dose was increased to Abilify 10 mg which caused anxiety and akathisia. He has done very well with switch to Seroquel 25 mg, taking 1/2 tablet at bedtime to minimize daytime drowsiness. Hallucinations controlled. He can continue 1/2 tab or increase to 1 full tab if needed. F/U with AUD program as usual. Today 10/18/2023 provider informed pt that I would be retiring within the next year or so, and encouraged him to establish with therapist, which he is agreeable to doing. F/U with me in 2 months. He agrees with the plan. Assessment & Plan (07/30/2023 3:32 PM EDT): Presented with auditory hallucinations with some anxiety, without other significant mood symptoms. Symptoms began October 2022, without obvious triggering factor. Patient has been abstinent of alcohol, does use Marijuana. Had good response to Abilify 5 mg daily, then hallucinations recurred and dose was increased to Abilify 10 mg which caused anxiety and akathisia. He has done very well with switch to Seroquel 25 mg, taking 1/2 tablet at bedtime to minimize daytime drowsiness. Hallucinations controlled. He can continue 1/2 tab or increase to 1 full tab if needed. F/U with AUD program as usual. F/U with me in 2 months. He agrees with the plan. Assessment & Plan (07/16/2023 1:59 PM EDT): Presented with auditory hallucinations with some anxiety, without other significant mood symptoms. Symptoms began October 2022, without obvious triggering factor. Patient has been abstinent of alcohol, does use Marijuana. Had good response to Abilify 5 mg daily, then hallucinations recurred and dose was increased to Abilify 10 mg at bedtime. He reported good control of hallucinations, but today says that he developed anxiety with restlessness with increased Abilify. Will now stop the Abilify, and start Seroquel 25 mg 1/2 tab at bedtime, then 1 full tab at bedtime. F/U with AUD program as usual. F/U with me in 3 weeks as already scheduled. He agrees with the plan. Assessment & Plan (05/28/2023 2:58 PM EDT): Presented with auditory hallucinations with some anxiety, without other significant mood symptoms. Symptoms began October 2022, without obvious triggering factor. Patient has been abstinent of alcohol, does use Marijuana. Had good response to Abilify 5 mg daily, then hallucinations recurred and dose was increased to Abilify 10 mg at bedtime. Again doing very well. No med change at this time. F/U with AUD program as usual. F/U with me in 2 months. He agrees with the plan. Assessment & Plan (03/26/2023 2:23 PM EDT): Presented with auditory hallucinations with some anxiety, without other significant mood symptoms. Symptoms began October 2022, without obvious triggering factor. Patient has been abstinent of alcohol, does use Marijuana. Has had very good response to Abilify 5 mg daily taken at bedtime with complete resolution of hallucinations. No med change at this time. He plans to contact agency to arrange for counseling. F/U with me in 2 months. He agrees with the plan. Assessment & Plan (02/19/2023 2:17 PM EDT): Auditory hallucinations with some anxiety, without other significant mood symptoms. Symptoms began approx 3 months ago (October 2022), without obvious triggering factor. Patient has been abstinent of alcohol x 9 months, continues using Marijuana daily. Has had good early response to Abilify 5 mg daily, although finding it a little sedating. He will take the Abilify at bedtime, no change in dose at this time. Recommend decreasing marijuana use. F/U for counseling as planned and F/U with me in 4 weeks. He agrees with the plan. Assessment & Plan (01/29/2023 2:37 PM EDT): Isolated auditory hallucinations without underlying mood symptoms. Symptoms began approx 3 months ago (October 2022), without obvious triggering factor. Patient has been abstinent of alcohol x 9 months, continues using Marijuana daily. Will start Abilify 5 mg daily. Explained that this was a low dose and he might not notice improvement, but as long as there were no problems with the medication please take daily and we can increase as needed. He will F/U for counseling as planned and F/U with me in 3 weeks. He agrees with the plan. History of hepatitis C 10/23/2022 Chronic gastroesophageal reflux disease 12/13/19 16 Assessment & Plan (02/19/2024 2:14 PM EDT): Sx controlled -EGD with moderate chronic inflammation DEC 2023 -continue prilosec daily -continue Tums prn Mood disorder 12/13/2015 Assessment & Plan (05/12/2024 5:16 PM EDT): At first, reported auditory hallucinations with some anxiety, without other significant mood symptoms. Symptoms began October 2022, without obvious triggering factor. Patient has been abstinent of alcohol, does use Marijuana. Had good response to Abilify 5 mg daily, then hallucinations recurred and dose was increased to Abilify 10 mg which caused anxiety and akathisia. He did well with switch to Seroquel, gradually titrated up to 50 mg in the morning and 100 mg at bedtime. Hallucinations and mood swings now controlled, and sleeping better. Since this provider will be retiring, patient will be referred to new [facility] Psychiatric prescriber. He is aware those appts will be via televisit, and that provider will not be an employe of [facility]. Therefore he gives consent to share PHI. Any issues or concerns, contact [facility]. All his questions were answered and I have wished him well. He agrees with the plan. Assessment & Plan (03/27/2024 2:10 PM EDT): At first, reported auditory hallucinations with some anxiety, without other significant mood symptoms. Symptoms began October 2022, without obvious triggering factor. Patient has been abstinent of alcohol, does use Marijuana. Had good response to Abilify 5 mg daily, then hallucinations recurred and dose was increased to Abilify 10 mg which caused anxiety and akathisia. He did well with switch to Seroquel 25 mg, taking 1/2 tablet at bedtime then self-increased to 12.5 mg in am and 25 at bedtime. Recently dose was increased to Seroquel 50 mg at bedtime only. He has been sleeping a little better, but hallucinations and mood swings persist. Discussed option to increase to 75 mg vs. 100 mg and he prefers 75 mg, taken at bedtime. F/U with me in 6 weeks. He has been referred for counseling. He agrees with the plan. Assessment & Plan (02/21/2024 4:44 PM EDT): At first, reported auditory hallucinations with some anxiety, without other significant mood symptoms. Symptoms began October 2022, without obvious triggering factor. Patient has been abstinent of alcohol, does use Marijuana. Had good response to Abilify 5 mg daily, then hallucinations recurred and dose was increased to Abilify 10 mg which caused anxiety and akathisia. He did well with switch to Seroquel 25 mg, taking 1/2 tablet at bedtime to minimize daytime drowsiness, with control of hallucinations. That was continued, with option to increase to 1 full tab if needed. He then had no follow up for 5 months. During that time reports that hallucinations recurred so he added 1/2 tab of Seroquel in the morning. Today also endorses other mood symptoms, with most days depressed and sometimes also irritability, agitation, or excess energy. Reviewed with patient that it was not a good idea to change dose or timing of medications without discussing with prescriber. At this time will increase to Seroquel 50 mg taken once daily at bedtime, to improve sleep and minimize daytime sedation. This should be helpful for daytime mood symptoms as well but we can revisit the idea of a small morning dose if necessary at next appt with me in 3-4 weeks. Since I will be retiring soon, we really don't want to miss appointments, in order to help him get stabilized as quickly as possible. He has been referred for counseling. He agrees with the plan. Assessment & Plan (02/19/2024 2:12 PM EDT): with PTSD and AH, sx improved -he denies any current SI/HI -he has the number for crisis and contracts for safety -cont seroquel as per MEGAN Mae, he will discuss re: increased dose at upcoming visit -f/u with MEGAN Mae as scheduled Tobacco dependence 12/13/2015 Assessment & Plan (02/19/2024 2:17 PM EDT): 1 ppd x 30 years, quit 2022 -congratulated pt on continued tobacco cessation -awaiting results of lung cancer screening Resolved Problems Problem Noted Date Diagnosed Date Resolved Date Alcohol dependence 12/13/2015 3 Anxiety 12/13/2015 12/17/2024 Encounters * This document contains information received from the source organization and may not represent a complete record from that organization. Date Type Department Care Team Description 03/10/2025 8:30 AM EDT Office Visit [facility] [address] [place] [id number] Duane Angel MD Alcohol use disorder, severe, in sustained remission (CMS/HCC) (Primary Dx) 03/10/2025 Travel 02/24/2025 Refill [facility] [address] [place] [id number] Gracia Interiano DO Possible exposure to STD 02/10/2025 9:30 AM EDT Office Visit [address] [id number] Duane Angel MD Alcohol use disorder, severe, in sustained remission (CMS/HCC) (Primary Dx) 02/10/2025 Travel 02/09/2025 9:00 AM EDT Office Visit [address] [id number] Gracia Interiano DO Mood disorder (CMS/HCC) (Primary Dx); Alcohol use disorder, severe, in sustained remission (CMS/HCC); Chronic gastroesophageal reflux disease; Chronic constipation; Chronic pain of both shoulders; Tobacco dependence; Multiple acquired skin tags; Sleep-disordered breathing; Healthcare maintenance 02/09/2025 Travel 02/03/2025 Travel 01/22/2025 Orders Only [facility] [address] [place] [address] Kari Pedro MD 01/13/2025 9:30 AM EST Office Visit [facility] [address] [place] [address] Duane Angel MD Alcohol use disorder, severe, in sustained remission (CMS/HCC) (Primary Dx) 01/13/2025 Travel from Last 3 Months Immunizations Immunization Administration Dates Next Due Hep B, adult 08/11/2013,08/02/2012,12/27/2011 Influenza injectable quadriv alent IIV4 with preservative 09/01/2019,08/15/2018,09/18/2016 Influenza injectable quadriv alent preservative free 08/20/2023,08/22/2022,09/19/2021,07/30,08/29/2017,12/13/2015 Influenza, IIV3, injectable 08/22/2022, 4,01/12/2012 Influenza, Split (incl. laurie fied surface antigen) 08/11/2013,08/02/2012 Influenza, seasonal, injecta ble, preservative free 08/07/2024 Moderna Covid-19 Vaccine 12+ 11/23/2021,04/08/20 21,03/11/2021 Pfizer Covid-19 Vaccine 12+ 08/07/2024, 3,09/20/2022 Pfizer Covid-19 Vaccine 12+ Bivalent 09/20/2022 Pneumococcal Conjugate PCV 20 02/19/2024 Pneumococcal Polysaccharide PPSV23 01/12/2012 Pneumococcal, Unspecified 01/12/2012 TD (adult), 2 Lf tetanus tox oid, preservative free, adsorbed 02/19/2024 Tdap 08/02/2012 Family History Medical History Relation Name Comments Alcohol abuse Father Coronary artery disease Father No Known Problems Father's Sister Alcohol abuse Mother Bipolar disorder Sister Relation Name Status Comments Father Father's Sister Mother Sister Social History Tobacco Use Types Packs/Day Years Used Date Smoking Tobacco: Former Cigarettes Passive Smoke Exposure: Past Smokeless Tobacco: Former Tobacco Cessation:Counseling Given: Not Answered Alcohol Use Standard Drinks/Week Comments Never 0 [...] or Peters 02/26/2023 1: 29 PM EDT Last Filed Vital Signs Vital Sign Reading Time Taken Comments Blood Pressure 117/76 02/10/2025 9:19 AM EDT Pulse 76 02/10/2025 9:19 AM EDT Temperature 36.7 ??C (98 ??F) 02/10/2025 9:19 AM EDT Respiratory Rate 20 02/10/2025 9:19 AM EDT Oxygen Saturation 95% 02/09/2025 9:19 AM EDT Inhaled Oxygen Concentration - - Weight 87.1 kg (192 lb) 02/09/2025 9:19 AM EDT Height 160 cm (5' 3 ) 02/09/2025 9:19 AM EDT Body Mass Index 34.01 02/09/2025 9:19 AM EDT Plan of Treatment Upcoming Encounters Date Type Department Care Team (Late st Contact Info) Description 04/07/2025 8:30 AM EDT Office Visit [facility] [address] [place] [id number] Duane Angel MD [address] [place] [phone] 04/07/2025 2:00 PM EDT Office Visit [facility] [address] [place] [phone] Monica Arevalo [address] [place] [address] 04/30/2025 2:00 PM EDT Office Visit [facility] [address] [place] [id number] Nia Brown BDS [address] [place] [address] 06/26/2025 11:00 AM EDT Office Visit [facility] [address] [place] [id number] Parul Felder MD [address] [place] [phone] Health Maintenance Due Date Last Done Comments CT Colonography 1973 FIT DNA/Cologuard 1973 FIT 1973 FOBT 1973 Sigmoidoscopy 1973 Family Planning (PISQ) 1988 Hepatitis A Vaccines (1 of 2 - Risk 2-dose series) 1992 Zoster Vaccines (1 of 2) 2023 SDOH Screening 02/10/2025 02/11/2024 Dental X-Ray: Bitewings 02/18/2025 02/18/20, 12/06/2023, 03/20/2023, Additional history exists Dental Oral Exam 04/06/2025 10/06/2024, 11/2023, 03/20/2023 Dental Prophylaxis 04/06/2025 10/06/2024, 0 02/18/2024, 03/27/2023 Depression Screening 05/12/2025 05/12/2024, 05/12/20 Disability Screening 02/03/2026 02/03/2025 Alcohol/Substance Use Screening 02/09/2026 02/09/2025 Tobacco Screening 03/10/2026 03/10/2025 Dental X-Ray: Full Mouth 03/21/2026 03/20/2023 Lipid Panel 09/05/2029 09/05/2024, 10/0 01/2023, 09/23/2021, Additional history exists Colonoscopy 01/08/2034 01/08/2024 Colorectal Cancer Screening 01/08/2034 DTaP/Tdap/Td Vaccines (3 - Td or Tdap) 02/18/2034 02/19/2024, 08/02/2012 RSV Patients and Patients Aged 60 years or older (1 - 1-dose 75+ series) 2048 Hepatitis B Vaccines Completed 08/11/2013, 08/02/2012, 12/27/2011 Pneumococcal Vaccine: 50+ Years Completed 02/19/2024, 01/12/2012, 01/12/2012 COVID-19 Vaccine Completed 08/07/2024, 08/2023, 09/20/2022, Additional history exists HIV Screening Completed 08/07/2024, 07/20, 08/21/2023, Additional history exists Influenza Vaccine Completed 08/07/2024, , 08/22/2022, Additional history exists HIB Vaccines Aged Out No longer eligi ble based on patient's age to complete this topic HPV Vaccines Aged Out No longer eligi ble based on patient's age to complete this topic IPV Vaccines Aged Out No longer eligi ble based on patient's age to complete this topic Meningococcal B Vaccine Aged Out No l onger eligible based on patient's age to complete this topic Meningococcal Vaccine Aged Out No adair mary anne eligible based on patient's age to complete this topic RSV under 20 months Aged Out No longe r eligible based on patient's age to complete this topic Rotavirus Vaccines Aged Out No longer eligible based on patient's age to complete this topic Procedures Procedure Name Priority Date/Time Associated Diagnosis Comments POCT HEIDI-14 URINE DRUG SCREEN Routine 03/10/2025 8:54 AM EDT Alcohol use disorder, severe, in sustained remission (CMS/HCC) POCT HEIDI-14 URINE DRUG SCREEN Routine 02/10/2025 9:10 AM EDT Alcohol use disorder, severe, in sustained remission (CMS/HCC) POCT HEIDI-14 URINE DRUG SCREEN Routine 01/13/2025 9:21 AM EST Alcohol use disorder, severe, in sustained remission (CMS/HCC) PROPHYLAXIS - ADULT Routine 10/06/2024 1 :00 PM EST PERIODIC ORAL EVALUATION - ESTABLISHED PATIENT Routine 10/06/2024 1:00 PM EST LIPID PANEL, STANDARD Routine 09/05/2024 9:23 AM EDT Mood disorder (CMS/HCC) Alcohol use disorder, severe, in sustained remission (CMS/HCC) Chronic gastroesophageal reflux disease Chronic constipation Chronic pain of both shoulders Tobacco dependence Multiple acquired skin tags Healthcare maintenance HIV 1/2 ANTIGEN/ANTIBODY, FOURTH GENERATION W/RFL Routine 08/07/2024 3:36 PM EDT Mood disorder (CMS/HCC) Alcohol use disorder, severe, in sustained remission (CMS/HCC) Chronic gastroesophageal reflux disease Chronic constipation Chronic pain of both shoulders Tobacco dependence Multiple acquired skin tags Healthcare maintenance BITEWINGS - 4 RADIOGRAPHIC IMAGES Routine 02/18/2024 2:00 PM EDT HM COLONOSCOPY Routine 01/08/2024 1:38 PM EST INTRAORAL - COMPLETE SERIES OF RADIOGRAPHIC IMAGES Routine 03/20/2023 3:00 PM EDT Encounter for dental examination from Last 3 Months or Most Recently Relevant to Health Maintenance Results * POCT HEIDI-14 Urine Drug Screen (03/10/2025 8:54 AM EDT) Only the most recent of3 resultswithin the time period is included. THC Positive Cocaine Screen, Urine Negative Opiate Screen, Urine Negative Methamphetamine Screen Urine Negative Amphetamine Screen, Urine Negative Benzodiazepines Screen, Urine Negative Barbiturate Screen, Urine Negative Methadone Screen, Urine Negative Buprenophine Screen, Urine Negative TCA, Urine Negative MDMA Urine Negative ng/mL Oxycodone Screen, Urine Negative Phencyclidine (PCP), Urine Negative Fentanyl, Urine Negative Urine Urine specimen obtained by clean catch procedure / Unknown 03/10/2025 8:54 AM EDT us Duane Angel MD POINT OF CARE TEST ENTER/EDIT ORDERABLES Final Result * Lipid Panel, Standard (09/05/2024 9:23 AM EDT) Triglycerides 141 <150 mg/dL [facility] Comment:Desirable Triglyceri de: less than 150 mg/dLBorderline High Triglyceride 150-199 mg/dLHigh Triglyceride: 200-499 mg/dLVery High Triglyceride: greater than or equal to 5OO mg/dL Cholesterol 151 <200 mg/dL [facility] Comment:Desirable Cholestero l: less than 200 mg/dLBorderline High Cholesterol: 200-239 mg/dLHigh Cholesterol: greater than 239 mg/dL LDL Cholesterol Calculated 77 <100 mg/dL [facility] Comment:Desirable LDL: less than 100 mg/dLNear Optimal/Above Optimal LDL: 110- 129 mg/dLBorderline High LDL: 130-159 mg/dLHigh LDL: 160-189 mg/dLVery High LDL: greater than or equal to 190 mg/dL HDL Cholesterol 46 >40 mg/dL [facility] Comment:Desirable HDL: great er than 40 mg/dL Note: This HDL assay may give artificially low results in patients with liver disease. Blood Venous blood specimen / Unknown 09/05/2024 9:23 AM EDT 09/05/2024 11:42 AM EDT us Gracia Interiano DO LAB BLOOD ORDERABLES Final R esult [facility] [address] [place] [address] [phone] * HIV-1/2 Antigen and Antibodies, Fourth Generation, with Reflexes (08/07/2024 3:36 PM EDT) HIV AB/AG Nonreactive Nonreactive [facility] Comment:HIV-1 p24 Ag and/or HIV-1/HIV-2 Ab not detected.A test result that is nonreactive does not exclude thepossibility of exposure to or infection with HIV-1 and/orHIV-2. Nonreactive results in this assay for individualswith prior exposure to HIV-1 and/or HIV-2 may be due toantigen and antibody levels that are below the limit ofdetection of this assay.The [employer] HIV Ag/Ab Combo assay result andsupplemental assay results should be interpreted inconjunction with the patient's clinical presentation,history and other laboratory results. If the results areinconsistent with clinical evidence, additional testing issuggested to confirm the result. Blood Venous blood specimen / Unknown 08/07/2024 3:36 PM EDT 08/07/2024 4:17 PM EDT Gracia Interiano DO LAB BLOOD ORDERABLES Final R esult Performing Organization Address [facility] Co de Phone Number [facility] [address] [place] [address] [phone] * Hm Colonoscopy (01/08/2024 1:38 PM EST) Historical Provider HEALTH MAINTENANCE Final Result from Last 3 Months or Most Recently Relevant to Health Maintenance Insurance HSN FULL [facility] - HSN PARTIAL (MEDICAID) Care Teams Organ Installer Relationship Specialty Start Date End Date Gracia Interiano DO [address] [place] [address] PCP - General Family Medicine 02/01/12 Heath Mae FNP [address] [place] [address] Nurse Practitioner Family Medicine 10/18/23
--- OUTSIDE RECORDS SUMMARY | 2025-04-06 14:00 | XMS_ITS | Clinical Summary ---
Author Organization [facility] Address [address] [place] [address] Care Team Providers Care Rehabilitation Aide Name Role Phone Unavailable Primary Care Provider Unavailabl e Source Comments PLEASE NOTE, if this patient is a minor, it may be UNLAWFUL to discuss sensitive information that is contained in these records (such as FAMILY PLANNING, MENTAL HEALTH or SUBSTANCE ABUSE) with the minor patient's parent or other person without the patient's specific authorization.[facility] Allergies Active Allergy Reactions Criticality Noted Date Comments Penicillins Hives High 08/11/2013 Medications baclofen (LIORESAL) 10 mg tablet Take 10 mg by mouth 3 (three) times daily as needed 4 Active DESCOVY 200-25 mg tab Take 1 Tablet by mouth every morning Active QUEtiapine (SEROQUEL) 50 mg tablet Take 50 mg by mouth every morning before breakfast 4 Active QUEtiapine (SEROQUEL) 100 mg tablet Take 100 mg by mouth nightly at bedtime Active omeprazole (PRILOSEC) [address] capsule Take 20 mg by mouth every morning before breakfast 4 Active naproxen (NAPROSYN) 500 mg tablet Take 500 mg by mouth 2 (two) times daily with a meal 4 Active VIVITROL 380 mg ER suspension Inject 380 mg into the muscle every 28 days Active CITRUCEL 500 mg tab tab Take 1 Tablet by mouth 2 (two) times daily Active diclofenac sodium (VOLTAREN) 1 % gel Apply 2 g topically 4 (four) times daily as needed 4 Active ketoconazole (NIZORAL) 2 % shampoo Apply 2 mL topically once daily as needed 3 Active clotrimazole (LOTRIMIN) 1 % cream Apply 0.1 g topically 2 (two) times daily 3 Active Active Problems Problem Noted Date Diagnosed Date BMI 29.0-29.9,adult 02/19/2024 Diverticulosis 02/19/2024 Healthcare maintenance 02/19/2024 Overview (07/31/2024): Last Assessment & Plan: -s/p flu vaccine Aug 2023 -s/p COVID vaccine AUG 2023 -s/p Tdap vaccine Jul 2012 -Td today -s/p pneumovax Dec 2011 -PCV20 today -Hep B immune -colonoscopy with diverticulosis DEC 2023 -A1c 5.1%, LDL Aug -STI/HIV screen negative AUG 2023 -cont PrEP daily Chronic pain of both shoulders 08/20/2023 Overview (07/31/2024): Last Assessment & Plan: with intermittent flaring -R shoulder XR with mild arthritis Dec 2020 -L shoulder XR unremarkable Dec 2020 -C-spine XR with mild curvature, degenerative spondylosis and DDD with bilateral neuroforaminal narrowing DEC 2020 -cont naproxen and baclofen as needed -he declines PT or ortho at this time -advised contact [facility] if sx worsen Alcohol use disorder, severe , in sustained remission ([facility]) 03/05/2023 Overview (07/31/2024): Last Assessment & Plan: -congratulated pt for continued sobriety -cont vivitrol monthly -f/u with Dr. Angel as scheduled Assessment & Plan (07/31/2024 4:05 PM EDT): A: in remission P: continue monthly Vivitro Shots Auditory hallucinations 01/29/2023 Overview (07/31/2024): Last Assessment & Plan: Presented with auditory hallucinations with some anxiety, [...] agrees with the plan. Assessment & Plan (07/31/2024 4:04 PM EDT): A: No auditory hallucinations reported today P: Continue with Seroquel 50 Q am and 100 Q HS, no refills needed. History of hepatitis C 10/23/2022 Anxiety 12/13/2015 Chronic gastroesophageal reflux disease 12/13/19 16 Overview (07/31/2024): Last Assessment & Plan: Sx controlled -EGD with moderate chronic inflammation DEC 2023 -continue prilosec daily -continue Tums prn Tobacco dependence 12/13/2015 Overview (07/31/2024): Last Assessment & Plan: 1 ppd x 30 years, quit 2022 -congratulated pt on continued tobacco cessation -awaiting results of lung cancer screening Episodic mood disorder ([facility] V24) 12/13/2015 Overview (07/31/2024): Last Assessment & Plan: At first, reported auditory hallucinations with some [...] retiring, patient will be referred to new [facility] Psychiatric prescriber. He is aware those appts will be via televisit, and that provider will not be an employe of [facility]. Therefore he gives consent to share PHI. Any issues or concerns, contact [facility]. All his questions were answered and I have wished him well. He agrees with the plan. Immunizations Immunization Administration Dates Next Due Flu, Multi Dose 0.5 ML 09/01/2019,08/15/2018, Flu, Preservative Free 08/20/2023,2021,09/19/2021,07/30,08/29/2017,12/13/2015 Hep B, Adult/Adol (ENERGIX/RECOMBIVAX) 3,08/02/2012,12/27/2011 INFLUENZA, SEASONAL, INJECTABLE 08/26/2014,01/12 PNEUMOCOCCAL CONJUGATE PCV 2 0 (Prevnar) 02/19/2024 PNEUMOCOCCAL POLYSACCHARIDE PPV23 (Pneumovax 23) 01/12/2012 PNEUMOCOCCAL, UNSPECIFIED FORMULATION 01/12/2012 [facility] State Funded Flu Vaccine 08/11/2013, 012 TDAP 08/02/2012 Td(adult),2 Lf tetanus toxoid,preservative free 02/19/2024 Family History Medical History Relation Name Comments Bipolar disorder Maternal Uncle Bipolar disorder Sister Relation Name Status Comments Father Maternal Uncle Alive Mother Sister Alive Social History Tobacco Use Types Packs/Day Years Used Date Smoking Tobacco: Former Cigarettes Q uit: 1992 Smokeless Tobacco: Never Tobacco Cessation:Counseling Given: Not Answered Alcohol Use Standard Drinks/Week Comments Not Currently 0 (1 standard drink = 0.6 oz pur e alcohol) last Drink Apr 16 2022 Social Connections Answer Date Recorded Connectedness 0 07/31/2024 Financial Resource Strain Answer Date R ecorded Financial Resource Strain 0 2023 Stress Answer Date Recorded Stress 0 06/30/2024 Physical Activity Answer Date Recorded Physical Activity 0 06/30/2024 Food Insecurity Answer Date Recorded Food 0 08/14/2024 Transportation Needs Answer Date Record ed Transportation 0 06/30/2024 Housing Stability Answer Date Recorded Housing 0 06/30/2024 Safety and Environment Answer Date Indio rded Safety 0 06/30/2024 Utilities Answer Date Recorded Utilities 0 06/30/2024 Employment Answer Date Recorded Stress 0 07/31/2024 Sex and Gender Information Value Date Recorded Sex Assigned at Male 06/30/2024 6:57 AM PDT Legal Sex Male 6:57 AM PDT Gender Identity Male 06/30/2024 6:57 AM PDT Sexual Orientation Not on file 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 Not on file Not on file Plan of Treatment Health Maintenance Due Date Last Done Comments Anxiety Screening 1973 Tobacco Cessation Counseling (#1) 1973 Syphilis Screening 05/26/1987 Hypertension Screening (#1) 1991 Imm-Hepatitis A (1 of 2 - Ri sk 2-dose series) 1992 CT Colonography 2018 Colonoscopy 2018 Colorectal Cancer Screening 2018 FIT/gFOBT 2018 Fecal DNA 2018 Flexible Sigmoidoscopy 2018 HIV Screening 04/28/2023 04/28/2022, 01/18, 09/23/2021, Additional history exists Imm-Zoster, Recombinant (1 of 2) 2023 [id number] ( season) 2024 08/28/2023, 09/20/2022, 11/23/2021, Additional history exists Imm-Influenza (#1) 2024 08/20/2023, 1 , 09/19/2021, Additional history exists Diabetes Screening 08/21/2024 08/21/2023, 1 11/23/2020, 01/10/2021 Lipid Screening 08/21/2024 08/21/2023 Alcohol and Drug Screen 11/19/2024 Depression Annual Screen 11/19/2024 Tobacco Screening 07/31/2025 07/31/2024 Imm-DTaP/Tdap/Td (3 - Td or Tdap) 02/18/2034 024, 08/02/2012 Imm-Hepatitis B Completed 08/11/2013, 07/20, 12/27/2011 Imm-Pneumococcal Completed 02/19/2024, , 01/12/2012 Insurance [employer] Member Subscriber Plan / Payer (Ef fective 2023-Present) Name:Eddie Worthington Relation to Subscriber:Self Name:Eddie Worthington Payer ID:[id number] Type:Indemnity Address: [address] [address]
--- OUTSIDE RECORDS SUMMARY | 2025-04-06 14:00 | XMS_ITS | Encounter Summary ---
Author Organization [employer] Address [address] [facility] [address]t [place] [address] Care Team Providers Care Color Separation Photographer Name Role Phone LaishaGracia Primary Care Provider + [phone] Heath Mae Unavailable Unavailable Reason for Visit * Reason Onset Date Comments cxn due to weather wants to rs 12/04/2023 Encounter Details Date Type Department Care Team (Late st Contact Info) Description 12/04/2023 Telephone [facility] [address] [place], [place] [phone] Monica Arevalo [address] [place], [place] [phone] cxn due to weather wants to rs Social History Tobacco Use Types Packs/Day Years Used Date Smoking Tobacco: Former Cigarettes Passive Smoke Exposure: Past Smokeless Tobacco: Former Alcohol Use Standard Drinks/Week Comments Never 0 (1 standard drink = 0.6 oz pur e alcohol) Depression Answer Date Recorded Patient Health Questionnaire-9 Score 2 10/18/2023 Patient Health Questionnaire-9 Score 2 10/18/2023 Last PHQ-9: Questionnaire Data Not on file 1 12/18/2022 Housing Stability Answer Date Recorded What is [...] Answer Date Recorded Patient Health Questionnaire-2 Score 2 10/18/2023 Sex and Gender Information Value Date Recorded Sex Assigned at Male 09/18/2022 10:22 AM EDT Legal Sex Male 10:22 AM EDT Gender Identity Male 12/28/2022 3:03 PM EST Sexual Orientation Lesbian or Peters 02/26/2023 1: 29 PM EDT documented as of this encounter Miscellaneous Notes * Telephone Encounter - Aleida Lamine - 12/04/2023 10:42 AM EST Patient called to cancel and rs scaling appt. Unable to rs scaling appts in [facility]. Called [facility] non answer. Patient has bee informed that message will be sent to [facility] and they will receive a call to byron REESE documented in this encounter Plan of Treatment Upcoming Encounters Date Type Department Care Team (Late st Contact Info) Description 04/07/2025 8:30 AM EDT Office Visit [facility] [address] [place] [address] Duane Angel MD [address] [place] [address] 04/07/2025 2:00 PM EDT Office Visit [facility] [address] [place], [place] [phone] Monica Arevalo [address] [place], [place] [phone] 04/30/2025 2:00 PM EDT Office Visit [facility] [address] [place], [place] [phone] Nia Brown BDS [address] [place], [place] [phone] 06/26/2025 11:00 AM EDT Office Visit [facility] [address] [place] [address] Parul Felder MD [address] [place] [address] documented as of this encounter Visit Diagnoses Not on filedocumented in this encounter Additional Health Concerns Assessment Noted Time PHQ-9 Depression Total Score: 2 10/18/20 23 2:35 PM EST documented as of this encounter Care Teams Color Separation Photographer Relationship Specialty Start Date End Date Gracia Interiano DO [address] [place] [address] PCP - General Family Medicine 02/01/12 Heath Mae FNP [address] [place] [address] Nurse Practitioner Family Medicine 10/18/23 documented as of this encounter
--- OUTSIDE RECORDS SUMMARY | 2025-04-06 14:00 | XMS_ITS | Encounter Summary ---
Author Organization [employer] Address [address] [facility] 7t [place] [address] Care Team Providers Care Licensed Real Estate Broker Name Role Phone Gracia Interiano DO Primary Care Provider + [phone] Heath Mae Unavailable Unavailable Reason for Visit * Reason Comments Med Refill Encounter Details Date Type Department Care Team ([facility] st Contact Info) Description 11/19/2024 Refill [facility] [address] [place], [place] [phone] Gracia Interiano DO [address] [place] [address] Possible exposure to STD Social History Tobacco Use Types Packs/Day Years [...] Description 04/07/2025 8:30 AM EDT Office Visit [facility] [address] [place] [phone] Duane Angel MD [address] [place] [phone] 04/07/2025 2:00 PM EDT Office Visit [facility] [address] [place] [address] [phone] Monica Arevalo [address] [place] [address] 04/30/2025 2:00 PM EDT Office Visit [facility] [address] [place] [phone] Nia Brown BDS [address] [place], [place] [phone] 06/26/2025 11:00 AM EDT Office Visit [facility] [address] [place] [phone] Parul Felder MD [address] [place] [address] documented as of this encounter Visit Diagnoses Diagnosis Possible exposure to STD Alcohol use disorder, severe, in sustained remission (CMS/HCC)- Primary documented in this encounter Additional Health Concerns Assessment Noted Time PHQ-9 Depression Total Score: 3 05/12/20 24 4:01 PM EDT documented as of this encounter Care Teams Licensed Real Estate Broker Relationship Specialty Start Date End Date Gracia Interiano DO [address] [place] [address] PCP - General Family Medicine 02/01/12 Heath Mae FNP [address] [place] [address] Nurse Practitioner Family Medicine 10/18/23 documented as of this encounter
--- OUTSIDE RECORDS SUMMARY | 2025-04-06 14:00 | XMS_ITS | Encounter Summary ---
Author Organization [employer] Address [address] [facility] 7t [place] [address] Care Team Providers Care Tile Power Shear Operator Name Role Phone LaishaGracia Primary Care Provider + [phone] Heath Mae Unavailable Unavailable Reason for Visit * Reason Comments Med Refill Encounter Details Date Type Department Care Team ([facility] st Contact Info) Description 09/16/2024 Refill [facility] [address] [place] [address] Duane Angel MD [address] [place] [address] Uncomplicated alcohol dependence (CMS/HCC) Social History Tobacco Use Types Packs/Day Years [...] Description 04/07/2025 8:30 AM EDT Office Visit [facility] [address] [place] [phone] Duane Anegl MD [address] [place] [phone] 04/07/2025 2:00 PM EDT Office Visit [facility] [address] [place] [address] Monica Arevalo [address] [place] [address] 04/30/2025 2:00 PM EDT Office Visit [facility] [address] [place] [phone] Nia Brown BDS [address] [place] [address] 06/26/2025 11:00 AM EDT Office Visit [facility] [address] [place] [address] Parul Felder MD [address] [place] [phone] documented as of this encounter Visit Diagnoses Diagnosis Uncomplicated alcohol dependence (CMS/HCC) Alcohol use disorder, severe, in sustained remission (CMS/HCC)- Primary documented in this encounter Additional Health Concerns Assessment Noted Time PHQ-9 Depression Total Score: 3 05/12/20 24 4:01 PM EDT documented as of this encounter Care Teams Tile Power Shear Operator Relationship Specialty Start Date End Date Gracia Interiano DO [address] [place] [address] PCP - General Family Medicine 02/01/12 Heath Mae FNP [address] [place] [address] Nurse Practitioner Family Medicine 10/18/23 documented as of this encounter
== END ==
LOC: HO.SL 13:57
PROVIDERS: Visit Provider Family Medicine
DX: G47.30 Sleep apnea, unspecified (principal)
CPT/HCPCS: 95806

== ENCOUNTER → 2025-04-06 19:00 | Outpatient (BNV) | payer OTHER, SELFPAY | PROVIDERS: Visit Provider Psychiatry & Neurology Neurology | DX: G47.30 Sleep apnea, unspecified (principal) | CPT/HCPCS: 95806 ==

== ENCOUNTER 2025-07-01 16:06 | Outpatient (REF) | payer OTHER, SELFPAY ==
--- OUTSIDE RECORDS SUMMARY | 2025-07-01 16:09 | XMS_ITS | Clinical Summary ---
Author Organization [facility] Address [address] [place] [address] Care Team Providers Care Process Safety Specialist Name Role Phone Unavailable Primary Care Provider [...] or ortho at this time -advised contact [facility] if sx worsen Alcohol use disorder, severe , in sustained remission ([facility]) 03/05/2023 Overview (07/31/2024): Last Assessment & Plan: [...] of lung cancer screening Episodic mood disorder ([facility]-HCC V24) 12/13/2015 Overview (07/31/2024): Last Assessment & [...] retiring, patient will be referred to new [facility] Psychiatric prescriber. He is aware those appts will be via televisit, and that provider will not be an employe of [facility]. Therefore he gives consent to share PHI. Any issues or concerns, contact [facility]. All his questions were answered and I have wished him well. He agrees with the plan. Immunizations Immunization Administration Dates Next Due Flu, Multi Dose 0.5 ML 09/01/2019,08/15/2018, Flu, Preservative Free 08/20/2023,2021,09/19/2021,07/30,08/29/2017,12/13/2015 Hep B, Adult/Adol (VAYOLDX-L-TCUTL/RECOMBIVAX-ADULT) 08/11/2013,08/02/2012,12/27/2011 INFLUENZA, SEASONAL, INJECTABLE 08/26/2014,01/12 PNEUMOCOCCAL CONJUGATE PCV 2 0 (Prevnar 20) 02/19/2024 PNEUMOCOCCAL POLYSACCHARIDE PPV23 (Pneumovax 23) 01/12/2012 PNEUMOCOCCAL, UNSPECIFIED FORMULATION 01/12/2012 [facility] State Funded Flu Vaccine 08/11/2013, 012 TDAP 08/02/2012 Td (adult),2 Lf tetanus toxo id (TDVAX), preservative free 02/19/2024 Family History Medical History Relation [...] file Not on file Not on file 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 file Not on file Not on file Plan of Treatment Health Maintenance Due Date Last Done Comments Anxiety Screening 1973 Tobacco Cessation Counseling (#1) 1973 Syphilis Screening 05/26/1987 Hypertension Screening (#1) 1991 Imm-Hepatitis A (1 of 2 - Ri sk 2-dose series) 1992 CT Colonography 2018 Colonoscopy 2018 Colorectal Cancer Screening 2018 FIT/gFOBT 2018 Fecal DNA 2018 Flexible Sigmoidoscopy 2018 Imm-Zoster, Recombinant (1 of 2) 2023 [id number] () 07/20/2024 08/28/2023, 09/20/2022, 11/23/2021, Additional history exists Diabetes Screening 08/21/2024 08/21/2023, 1 11/23/2020, 01/10/2021 HIV Screening 08/21/2024 08/21/2023, 04/19, 02/08/2022, Additional history exists Lipid Screening 08/21/2024 08/21/2023 Alcohol and Drug Screen 11/19/2024 Depression Annual Screen 11/19/2024 Imm-Influenza (#1) 2025 08/20/2023, 1 , 09/19/2021, Additional history exists Tobacco Screening 07/31/2025 07/31/2024 Imm-DTaP/Tdap/Td (3 - Td or Tdap) 02/18/2034 024, 08/02/2012 Imm-Hepatitis B Completed 08/11/2013, 07/20, 12/27/2011 Imm-Pneumococcal 50+ Completed 02/19/2024, 01/12/2012, 01/12/2012 Insurance [employer]
--- OUTSIDE RECORDS SUMMARY | 2025-07-01 16:09 | XMS_ITS | Encounter Summary ---
Author Organization [employer] Address [address] [facility] [address]t [place] [address] Care Team Providers Care Artificial Breeding Ranch Supervisor Name Role Phone LaishaGracia Primary Care Provider + [phone] Heath Mae Unavailable Unavailable Encounter Details Date Type Department Care Team (Late st Contact Info) Description 01/22/2025 Orders Only [facility] [address] [place] [address] Provider, MD Kari Social History Tobacco Use [...] Care Team (Late st Contact Info) Description 07/28/2025 8:30 AM EDT Office Visit [facility] [address] [place], [place] [phone] Duane Angel MD [address] [place] [address] 10/08/2025 1:00 PM EST Office Visit [facility] [address] [place], [place] [phone] Monica Arevalo [address] [place], [place] [phone] documented as of this encounter Procedures Procedure Name Priority Date/Time Associated Diagnosis Comments HM COLONOSCOPY Routine 01/08/2024 1:38 PM EST documented in this encounter Results * Hm Colonoscopy (01/08/2024 1:38 PM EST) us Historical Provider HEALTH MAINTENANCE Final Result documented in this encounter Visit Diagnoses Not on filedocumented in this encounter Additional Health Concerns Assessment Noted Time PHQ-9 Depression Total Score: 3 05/12/20 4:01 PM EDT documented as of this encounter Care Teams Artificial Breeding Ranch Supervisor Relationship Specialty Start Date End Date Gracia Interiano DO [address] [place] [phone] PCP - General Family Medicine 02/01/12 Heath Mae FNP [address] [place] [address] Nurse Practitioner Family Medicine 10/18/23 documented as of this encounter
[2025-07-01 17:47] LABS: Hemoglobin A1C 128.7828 umol/L; Total Hemoglobin (HGBA1C) 3765.6516 umol/L
[2025-07-01 17:59] LABS: Anion Gap 13 (12-20); Blood Urea Nitrogen 13 mg/dL (9-16); Calcium 9.1 mg/dL (8.4-10.2); Carbon Dioxide 25 mmol/L (22-29); Chloride 106 mmol/L (96-108); Estimated Glomerular Filt Rate > 60; Potassium 4.0 mmol/L (3.3-5.1); Sodium 140 mmol/L (135-145)
== END 2025-07-01 16:07 | disposition home or self-care (01) ==
LOC: HO.HHCL 16:06
PROVIDERS: PCP Family Medicine; Visit Provider Emergency Medicine
DX: R21 Rash and other nonspecific skin eruption (principal)
CPT/HCPCS: 36415; 80048; 83036; 86592; 87255

== ENCOUNTER 2025-09-21 07:32 | Outpatient (REF) | payer OTHER, SELFPAY ==
--- NOTE | ~2025-09-21 | US_ITS ---
CLINICAL HISTORY: h o alcohol dependence US abdomen complete Comparison: None provided Findings: The visualized pancreas head is normal. The visualized aorta and inferior vena cava are normal caliber. The liver is normal in size, right lobe length is 16.8 cm. Diffusely increased echogenicity of the liver parenchyma. No discrete lesion is visualized in the imaged liver. No intrahepatic bile duct dilatation. The common duct is 2 mm in diameter. The gallbladder is normal. Negative sonographic Pastrana sign. The main portal vein is patent with antegrade flow. The right kidney is normal, 10.8 cm in length. The left kidney is normal, 11.2 cm in length. The spleen is enlarged, 14.0 cm in length. No splenic lesion is seen. No free fluid in the abdomen. Impression: 1. Echogenic liver parenchyma is nonspecific, commonly seen in steatosis or chronic hepatitis. 2. Splenomegaly. This document has been electronically signed by: Kaya Clark MD on 09/21/2025 12:39:05
--- OUTSIDE RECORDS SUMMARY | 2025-09-21 07:34 | XMS_ITS | Clinical Summary ---
Author Organization [employer] Address [address] [address] [address] [place] [address] Care Team Providers Care Frame Stylist Name Role Phone DanielGracia pelletier Primary Care Provider [phone] Heath Mae Unavailable Unavailable Allergies Active Allergy Reactions Criticality Noted Date Comments Acyclovir Hives,Itching,Rash Low 07/04/2025 Penicillins Hives High 08/11/2013 Other Reaction(s): unknown Medications * This document contains information received from the source organization and may not represent a complete record from that organization. ketoconazole (Nizoral) 2 % shampoo Apply topically 2 (two) times a week. 240 mL 3 023 Active baclofen (Lioresal) 10 MG tabletIndication s:Chronic pain of both shoulders Take 1 tablet (10 mg) by mouth if needed in the morning, at noon, and at bedtime for muscle spasms. 60 tablet 1 024 Active Diclofenac Sodium 1 % gel Apply 2 g topically if needed in the morning, at noon, in the evening, and at bedtime (pain). 150 g 3 024 Active Additional Information Patient not taking.Reported on 08/13/2025 Fluocinolone Acetonide Scalp ([place]-Smoothe/F S Scalp) 0.01 % oilIndications:S eborrheic dermatitis Apply at night 2-3 times weekly 118.28 mL 3 024 Active hydrocortisone 2.5 % creamIndications :Seborrheic dermatitis Apply topically Once daily as needed for rash or irritation. Face rash 28 g 1 024 Active naproxen (Naprosyn) 500 MG tablet Take 1 tablet (500 mg) by mouth if needed in the morning and at bedtime for mild pain. 40 tablet 1 Active Citrucel 500 MG tablet Take 1 tablet by mouth 2 times daily. 60 tablet 11 025 2025 Active docusate sodium (Colace) 100 MG capsule Take 1 capsule (100 mg) by mouth 2 times daily. 60 capsule 11 025 2025 Active Additional Information Patient not taking.Reported on 08/13/2025 Descovy 200-25 MG tabletIndication s:Possible exposure to STD TAKE 1 TABLET BY MOUTH EVERY MORNING 30 tablet 2 025 Active Vivitrol injectionIndicat ions:Uncomplicat ed alcohol dependence (CMS/HCC) (HCC) INJECT 4 ML (380mg) INTRAMUSCULARLY EVERY 28 DAYS DIRECTED 1 each 5 Active omeprazole (PriLOSEC) [address] capsuleIndicatio ns:Gastroesophag eal reflux disease, unspecified whether esophagitis present TAKE 1 CAPSULE BY MOUTH TWICE DAILY BEFORE BREAKFAST AND SUPPER 180 capsule 025 Active betamethasone valerate (Valisone) 0.1 % cream Apply topically 2 times daily. 30 g 1 025 Active Additional Information Patient not taking.Reported on 08/13/2025 clotrimazole (Lotrimin) 1 % cream Apply topically 2 times daily. 60 g 3 025 Active cetirizine (ZyrTEC) 10 MG tablet Take 1 tablet (10 mg) by mouth Once per day. 90 tablet 3 025 2025 Active hydrOXYzine HCl (Atarax) 25 MG tablet Take 1 tablet (25 mg) by mouth every 6 (six) hours if needed for itching. 40 tablet 1 025 Active Additional Information Patient not taking.Reported on 08/13/2025 QUEtiapine (SEROquel) 100 MG tabletIndication s:Auditory hallucinations TAKE 1 TABLET BY MOUTH AT BEDTIME 30 tablet 1 025 Active QUEtiapine (SEROquel) 25 MG tabletIndication s:Auditory hallucinations TAKE 1 TABLET BY MOUTH EVERY MORNING. TAKE WITH 50 MG TABLETS IN THE MORNING 30 tablet 1 025 Active QUEtiapine (SEROquel) 50 MG tabletIndication s:Auditory hallucinations TAKE 1 TABLET BY MOUTH EVERY MORNING. TAKE WITH SEROQUEL 25 MG IN THE MORNING. 30 tablet 1 025 Active QUEtiapine (SEROquel) 100 MG tabletIndication s:Auditory hallucinations TAKE 1 TABLET BY MOUTH AT BEDTIME 30 tablet 1 025 2024 Discontinued QUEtiapine (SEROquel) 25 MG tabletIndication s:Auditory hallucinations TAKE 1 TABLET BY MOUTH EVERY MORNING. TAKE WITH SEROQUEL 50 MG IN THE MORNING. 30 tablet 1 025 2024 Discontinued QUEtiapine (SEROquel) 50 MG tabletIndication s:Auditory hallucinations TAKE 1 TABLET BY MOUTH EVERY MORNING. TAKE WITH SEROQUEL 25 MG IN THE MORNING. 30 tablet 1 025 2024 Discontinued( Reorder (will not trigger notification to Pharmacy)) Hospital, Clinic, or Other Facility Administered Medication Ordered Dose Route Frequency Start Date End Date Status naltrexone ER (Vivitrol) injection 380 mgIndications:Alcohol use disorder, severe, in sustained remission (CMS/HCC) (HCC) 380 mg IM Once 08/25/2025 08/25/2025 Ended Active Problems Problem Noted Date Diagnosed Date Allergic reaction 07/01/2025 Overview (08/13/2025): I started taking g acyclovir on 07-01-25 and stop on 07-04 I realized it was making me breakout rash,itching and hives this is why I made this appointment Diverticulosis 02/19/2024 BMI 34.0-34.9,adult 02/19/2024 Healthcare maintenance [...] or ortho at this time -advised contact [facility] if sx worsen Alcohol use disorder, severe , in sustained remission (CMS/[facility]) 03/05/2023 Assessment & Plan (02/19/2024 2:12 PM [...] retiring, patient will be referred to new [facility] Psychiatric prescriber. He is aware those appts will be via televisit, and that provider will not be an employe of [facility]. Therefore he gives consent to share PHI. Any issues or concerns, contact [facility]. All his questions were answered and I [...] of lung cancer screening Episodic mood disorder 12/13/2015 Overview (08/13/2025): Last Assessment & Plan: At first, reported [...] retiring, patient will be referred to new [facility] Psychiatric prescriber. He is aware those appts will be via televisit, and that provider will not be an employe of [facility]. Therefore he gives consent to share PHI. Any issues or concerns, contact [facility]. All his questions were answered and I have wished him well. He agrees with the plan. Resolved Problems Problem Noted Date Diagnosed Date Resolved Date Alcohol dependence 12/13/2015 3 Anxiety 12/13/2015 12/17/2024 Encounters Date Type Department Care Team Description 09/04/2025 Travel 08/25/2025 8:30 AM EDT Office Visit [facility] MEDICINE [address] [place] [phone] Duane Angel MD Alcohol use disorder, severe, in sustained remission (CMS/HCC) (HCC) (Primary Dx); Auditory hallucinations 08/25/2025 Travel 08/24/2025 Telephone [facility] MEDICINE [address] [place] [phone] Gracia Interiano DO Med Refill 08/24/[address] [address] Gracia Interiano DO Auditory hallucinations 08/18/2025 Travel 08/13/2025 1:00 PM EDT Office Visit [facility] ADULT DENTAL [address] [place] [phone] Shiraz Hilliard, DMD 07/28/2025 8:30 AM EDT Office Visit [address] [address] Duane Angel MD Alcohol use disorder, severe, in sustained remission (CMS/HCC) (Primary Dx) 07/28/2025 Travel 07/10/2025 10:30 AM EDT Office Visit [address] [address] Gracia Interiano DO Routine history and physical examination of adult (Primary Dx); Mood disorder (CMS/HCC); Alcohol use disorder, severe, in sustained remission (CMS/HCC); Chronic gastroesophageal reflux disease; Chronic constipation; Chronic pain of both shoulders; Tobacco dependence; Onychomycosis; Balanitis; Allergic reaction, initial encounter; Decreased visual acuity; BMI 33.0-33.9,adult; Dietary counseling; Exercise counseling 07/10/2025 Travel 07/09/2025 Travel 07/08/2025 Telephone [facility] MEDICINE [address] [place] [phone] Gracia Interiano DO Chart Prep 07/03/2025 Results Follow-Up [facility] WALK-IN [address] [address] Jayden Ribeiro MD Basic Metabolic Panel, Hemoglobin A1c, RPR (Monitor) with Reflex to Titer, POCT urinalysis dipstick manually resulted 07/01/2025 3:40 PM EDT Office Visit [facility] WALK-IN [address] [address] Jayden Ribeiro MD Penile rash (Primary Dx) 07/01/2025 Orders Only [facility] [address] [address] Jayden Ribeiro MD 07/01/2025 Travel 06/30/2025 9:15 AM EDT Clinical Support [address] [address] Thuy Arenas RN Alcohol use disorder, severe, in sustained remission (CMS/HCC) 06/30/2025 Travel 06/29/2025 Travel 06/26/2025 11:00 AM EDT Office Visit [address] [address] Parul Felder MD Seborrheic dermatitis (Primary Dx) 06/26/2025 Travel from Last 3 Months Immunizations Immunization [...] Alcohol abuse Father Coronary artery disease Father Bipolar disorder Father's Sister Cancer Maternal Grandmother Alcohol abuse Mother Diabetes Paternal Grandmother Hypertension Paternal Grandmother Bipolar disorder Sister Uterine cancer Sister Relation Name Status Comments Father Father's Sister Maternal Grandmother Mother Paternal Grandmother Sister Social History Tobacco Use Types Packs/Day Years Used Date Smoking Tobacco: Former Cigarettes Passive Smoke Exposure: Past Smokeless Tobacco: Former Tobacco Cessation:Counseling Given: Not Answered Alcohol Use Standard Drinks/Week Comments Never 0 (1 standard drink = 0.6 oz pur e alcohol) Depression Answer Date Recorded Patient Health Questionnaire-9 Score 7 07/10/2025 Patient Health Questionnaire-9 Score 7 07/10/2025 Last PHQ-9: Questionnaire Data Not on file 0 07/10/2025 Housing Stability Answer Date Recorded What is your housing situation today? I have jairo saba 07/10/[address] you li ve. Do you have problems with any of the following? None of the above 07/10/2025 Food Insecurity Answer Date Recorded Within the past 12 months, y ou worried that your food would run out before you got money to buy more: Never True 07/10/2025 Within the past 12 months,th e food you bought just didn't last and you didn't have enough money to get more: Never True Transportation Answer Date Recorded In the past 12 months, has l ack of transportation kept you from medical appts, meetings, work or from getting things needed for daily living? No 07/10/2025 Utilities Answer Date Recorded In the past 12 months, has t he electric, gas, oil or water company threatened to shut off services in your home? No 07/10/2025 Depression Answer Date Recorded Patient Health Questionnaire-2 Score 2 07/10/2025 Internet Access Answer Date Recorded Internet Access Q1 Yes 07/10/2025 Internet Access Q2 Not on file 07/10/2025 Sex and Gender Information Value Date Recorded Sex Assigned at Male 09/18/2022 10:22 AM EDT Legal Sex Male 10:22 AM EDT Gender Identity Male 12/28/2022 3:03 PM EST Sexual Orientation Lesbian or Peters 02/26/2023 1: 29 PM EDT Last Filed Vital Signs Vital Sign Reading Time Taken Comments Blood Pressure 112/72 08/25/2025 8:45 AM EDT Pulse 84 08/25/2025 8:45 AM EDT Temperature 36.1 C (97 F) 08/25/2025 8:45 AM EDT Respiratory Rate 20 08/25/2025 8:45 AM EDT Oxygen Saturation 97% 07/01/2025 3:03 PM EDT Inhaled Oxygen Concentration - - Weight 86.8 kg (191 lb 6.4 oz) 07/10/2025 10:39 AM EDT Height 160.7 cm (5' 3.25 ) 07/10/2025 10:39 AM E DT Body Mass Index 33.64 07/10/2025 10:39 AM EDT Plan of Treatment Upcoming Encounters Date Type Department Care Team (Late st Contact Info) Description 09/22/2025 8:30 AM EST Office Visit [facility] MEDICINE [address] [place] [address] Duane Angel MD [address] [place] [address] 10/08/2025 1:00 PM EST Office Visit [facility] AD[facility] [address] [facility] [place] [address] Monica Arevalo [address] [place], [place] [phone] 10/13/2025 2:30 PM EST Office Visit [facility] ADULT DENTAL [address] [place] [address] Lillian Richardsondra, DDS [address] [place] [address] 01/07/2026 2:30 PM EST Office Visit [facility] OPTOMETRY [address] [place], [place] [phone] Tarka Tiara, OD [address] [place], [place] [phone] Health Maintenance Due Date Last Done Comments CT Colonography 1973 FIT DNA/Cologuard 1973 FIT 1973 FOBT 1973 Sigmoidoscopy 1973 Family Planning (PISQ) 1988 Hepatitis A Vaccines (1 of 2 - Risk 2-dose series) 1992 Zoster Vaccines (1 of 2) 2023 Dental Oral Exam 04/06/2025 10/06/2024, 11/2023, 03/20/2023 Dental Prophylaxis 10/09/2025 04/07/2025, 1 12/06/2023, 02/18/2024, Additional history exists Alcohol/Substance Use Screening 02/09/2026 02/09/2025 Dental X-Ray: Full Mouth 03/21/2026 03/20/2023 Depression Screening 07/10/2026 07/10/2025, 07/10/20 Disability Screening 07/10/2026 07/10/2025 SDOH Screening 07/10/2026 07/10/2025 Tobacco Screening 08/13/2026 08/13/2025 Dental X-Ray: Bitewings 08/14/2026 08/13/20 25, 02/18/2024, 12/06/2023, Additional history exists Lipid Panel 09/05/2029 09/05/2024, 01/2023, 09/23/2021, Additional history exists Colonoscopy 01/08/2034 01/08/2024 Colorectal Cancer Screening 01/08/2034 DTaP/Tdap/Td Vaccines (3 - Td or Tdap) 02/18/2034 02/19/2024, 08/02/2012 RSV Patients and Patients Aged 60 years or older (1 - 1-dose 75+ series) 2048 Hepatitis B Vaccines Completed 08/11/2013, 08/02/2012, 12/27/2011 Pneumococcal Vaccine: 50+ Years Completed 02/19/2024, 01/12/2012, 01/12/2012 HIV Screening Completed 08/07/2024, 07/20, 08/21/2023, Additional history exists COVID-19 Vaccine Completed 08/28/2025, , 08/28/2023, Additional history exists Influenza Vaccine Completed 08/28/2025, , 08/20/2023, Additional history exists HIB Vaccines Aged Out [...] Procedure Name Priority Date/Time Associated Diagnosis Comments BITEWING - SINGLE RADIOGRAPHIC IMAGE Routine 08/13/2025 1:00 PM EDT INTRAORAL - PERIAPICAL FIRST RADIOGRAPHIC IMAGE Routine 08/13/2025 1:00 PM EDT PALLIATIVE (EMERGENCY) TREATMENT OF DENTAL PAIN - MINOR PROCEDURE Routine 08/13/2025 1:00 PM EDT HERPES CULTURE WITH REFLEX TYPING Routine 07/01/2025 4:15 PM EDT RPR (MONITOR) W/REFL TITER Routine 07/01/2025 4:13 PM EDT Penile rash HEMOGLOBIN A1C Routine 07/01/2025 4:13 PM EDT Penile rash BASIC METABOLIC PANEL Routine 07/01/2025 4:13 PM EDT Penile rash POCT URINALYSIS DIPSTICK Routine 07/01/2025 4:07 PM EDT Penile rash PROPHYLAXIS - ADULT Routine 04/07/2025 2 :00 PM EDT PERIODIC ORAL EVALUATION - ESTABLISHED PATIENT Routine [...] dependence Multiple acquired skin tags Healthcare maintenance HM COLONOSCOPY Routine 01/08/2024 1:38 PM EST INTRAORAL - COMPLETE SERIES OF RADIOGRAPHIC IMAGES Routine 03/20/2023 3:00 PM EDT Encounter for dental examination from Last 3 Months or Most Recently Relevant to Health Maintenance Results * Herpes Simplex Virus Culture with Reflex Typing (07/01/2025 4:15 PM EDT) HSV Culture/Type SEE NOTE [facility] Comment:HERPES SIMPLEX VIRUS CULTURE W/RFL TO TYPING Micro Number: [id number] Test Status: Final Specimen Source: Penis Specimen Quality: Adequate HSV Culture: Not IsolatedTHIS TEST WAS PERFORMED AT:[facility] [id number] MERATI,MD 07/01/2025 4:15 PM EDT 07/02/2025 12:12 PM EDT Narrative [facility] - 07/06/2025 1:08 PM EDT PENIS us Jayden Ribeiro MD LAB MICROBIOLOGY - GENERAL ORDER YANICK Final Result Performing Organization Address [facility] Co de Phone Number [facility] [address] [place] [phone] * RPR (Monitor) with Reflex to??Titer (07/01/2025 4:13 PM EDT) RPR (Monitor) w/Refl Titer NON-REACTI VE NON-REACT LIBERTAD [facility] Comment:THIS TEST WAS PERFOR MED AT:[employer] [place] [id number] WILCOX MD Rapid Plasma Reagin Ab Titer TNP [facility] Blood Venous blood specimen / Unknown 07/01/2025 4:13 PM EDT 07/01/2025 5:33 PM EDT us Jayden Ribeiro MD LAB BLOOD ORDERABLES Final Resul t Performing Organization Address [facility] Co de Phone Number [facility] [address] [place] [phone] * Hemoglobin A1c (07/01/2025 4:13 PM EDT) Hemoglobin A1c 5.3 <6.0 % [facility] Comment:Hemoglobin A1C Refer ence Range Adults: 4.8 - 6.0 % Non diabetic: < 6.0 % Goal: < 7.0 %Additional Action Suggested: > 8.0 %Note: Hemoglobin A1c results are invalid for patients with abnormal amounts of HbF. Blood transfusions may impact the HbA1c concentration in the patient sample. Estimated Average Glucose 105 mg/dL [facility] Comment:eAG = Estimated ave rage glucose which is %A1C expressed asaverage glucose, using the formula of the C5F-WqohuyjVqywelc Glucose study (ADAG), Diabetes Care, Vol.31,#8,Jun. 2007 Blood Venous blood specimen / Unknown 07/01/2025 4:13 PM EDT 07/01/2025 5:33 PM EDT Jayden Ribeiro MD LAB BLOOD ORDERABLES Final Resul t Performing Organization Address [facility] de Phone Number [facility] [address] [place] [phone] * Basic Metabolic Panel (07/01/2025 4:13 PM EDT) Sodium 140 135 - 145 mmol/L [facility] Potassium 4.0 3.3 - 5.1 mmol/L [facility] Chloride 106 96 - 108 mmol/L [facility] Carbon Dioxide 25 22 - 29 mmol/L [facility] Anion Gap 13 12 - 20 [facility] Urea Nitrogen (BUN) 13 9 - 16 mg/dL [facility] Creatinine, Serum 0.78 0.5 - 1.4 mg/dL [facility] Estimated Glomerular Filt Rate >60 [facility] Comment:Chronic Kidney Disea se: Estimated GFR < 60 mL/min/1.55b2Xymdby Kidney Disease: Estimated GFR < 15 mL/min/1.73m2 Glucose 97 60 - 115 mg/dL [facility] Calcium 9.1 8.4 - 10.2 mg/dL [facility] Blood Venous blood specimen / Unknown 07/01/2025 4:13 PM EDT 07/01/2025 5:33 PM EDT us Jayden Ribeiro MD LAB BLOOD ORDERABLES Final Resul t Performing Organization Address [facility] de Phone Number [facility] [address] [place] [phone] * POCT urinalysis dipstick manually resulted (07/01/2025 4:07 PM EDT) Color, UA Yellow Clarity, UA Clear Glucose, UA Negative Bilirubin, UA Negative Ketones, UA Negative Spec Grav, UA 1.015 Blood, UA Negative Negative, None Detected pH, UA 7.5 Protein, UA Negative Urobilinogen, UA 0.2 Leukocytes, UA Negative Negative, Rare, Trace Nitrite, UA Negative Negative, None Detected Urine 07/01/2025 4:07 PM EDT Jayden Ribeiro MD POINT OF CARE TEST ENTER/EDIT OR DERABLES Final Result * Lipid Panel, Standard (09/05/2024 9:23 AM EDT) Triglycerides 141 <150 mg/dL [facility] Comment:Desirable Triglyceri de: less than 150 mg/dLBorderline High Triglyceride 150-199 mg/dLHigh Triglyceride: 200-499 mg/dLVery High Triglyceride: greater than or equal to 5OO mg/dL Cholesterol 151 <200 mg/dL [facility] Comment:Desirable Cholestero l: less than 200 mg/dLBorderline High Cholesterol: 200-239 mg/dLHigh Cholesterol: greater than 239 mg/dL LDL Cholesterol Calculated 77 <100 mg/dL [facility] Comment:Desirable LDL: less than 100 mg/dLNear Optimal/Above Optimal LDL: 110- 129 mg/dLBorderline High LDL: 130-159 mg/dLHigh LDL: 160-189 mg/dLVery High LDL: greater than or equal to 190 mg/dL HDL Cholesterol 46 >40 mg/dL [facility] Comment:Desirable HDL: great er than 40 mg/dL Note: This HDL assay may give artificially low results in patients with liver disease. Blood Venous blood specimen / Unknown 09/05/2024 9:23 AM EDT 09/05/2024 11:42 AM EDT Gracia Interiano DO LAB BLOOD ORDERABLES Final R esult [facility] [address] [place], [place] [phone] * HIV-1/2 Antigen and Antibodies, Fourth Generation, with Reflexes (08/07/2024 3:36 PM EDT) HIV AB/AG Nonreactive Nonreactive [facility] Comment:HIV-1 p24 Ag and/or HIV-1/HIV-2 Ab not detected.A test result that is nonreactive does not exclude thepossibility of exposure to or infection with HIV-1 and/orHIV-2. Nonreactive results in this assay for individualswith prior exposure to HIV-1 and/or HIV-2 may be due toantigen and antibody levels that are below the limit ofdetection of this assay.The [employer] HIV Ag/Ab Combo assay result andsupplemental assay results should be interpreted inconjunction with the patient's clinical presentation,history and other laboratory results. If the results areinconsistent with clinical evidence, additional testing issuggested to confirm the result. Blood Venous blood specimen / Unknown 08/07/2024 3:36 PM EDT 08/07/2024 4:17 PM EDT Gracia Interiano DO LAB BLOOD ORDERABLES Final R esult [facility] [address] [place] [phone] * Hm Colonoscopy (01/08/2024 1:38 PM EST) Historical Provider HEALTH MAINTENANCE Final Result from Last 3 Months or Most Recently Relevant to Health Maintenance Insurance [facility] - [facility] PARTIAL (MEDICAID) Care Teams Frame Stylist Relationship Specialty Start Date End Date Gracia Interiano DO [address] [place] [address] PCP - General Family Medicine 02/01/12 Heath Mae FNP [address] [place] [address] Nurse Practitioner Family Medicine 10/18/23
--- OUTSIDE RECORDS SUMMARY | 2025-09-21 07:34 | XMS_ITS | Encounter Summary ---
Author Organization [employer] Address [address] [facility] [address] [place] [address] Care Team Providers Care Service Line Bus Cleaner Name Role Phone Gracia Interiano DO Primary Care Provider + [phone] Heath Mae Unavailable Unavailable Reason for Visit * Reason Comments Med Refill Encounter Details Date Type Department Care Team ([facility] st Contact Info) Description 11/19/2024 Refill [facility] [address] [place], [place] [phone] Gracia Interiano DO [address] [place] [address] Possible exposure to STD Social History Tobacco [...] Description 09/22/2025 8:30 AM EST Office Visit [facility] [address] [place] [address] Duane Angel MD [address] [place] [address] 10/08/2025 1:00 PM EST Office Visit [facility] [address] [place], [place] [phone] Monica Arevalo [address] [place] [address] 10/13/2025 2:30 PM EST Office Visit [facility] ADULT DENTAL [address] [place] [address] Rohit Richardson DDS [address] [place] [address] 01/07/2026 2:30 PM EST Office Visit [facility] OPTOMETRY [address] [place] [address] Tiara Aquino OD [address] [place] [address] documented as of this encounter Visit Diagnoses Diagnosis Possible exposure to STD documented in this encounter Additional Health Concerns Assessment Noted Time PHQ-9 Depression Total Score: 3 06/24/20 24 4:01 PM EDT documented as of this encounter Care Teams Service Line Bus Cleaner Relationship Specialty Start Date End Date Gracia Interiano DO [address] [place] [address] PCP - General Family Medicine 02/01/12 Heath Mae FNP [address] [place] [address] Nurse Practitioner Family Medicine 10/18/23 documented as of this encounter
--- OUTSIDE RECORDS SUMMARY | 2025-09-21 07:34 | XMS_ITS | Encounter Summary ---
Author Organization [employer] Address [address] [facility] 7t [place] [address] Care Team Providers Care Media Director Name Role Phone Gracia Interiano DO Primary Care Provider + [phone] Heath Mae Unavailable Unavailable Reason for Visit * Reason Comments Med Refill Encounter Details Date Type Department Care Team ([facility] st Contact Info) Description 05/09/2025 Refill [facility] MEDICINE [address] [place], [place] [phone] Gracia Interiano DO [address] [place] [address] Possible exposure to STD Social History Tobacco [...] Description 09/22/2025 8:30 AM EST Office Visit [facility] MEDICINE [address] [place] [address] Duane Angel MD [address] [place] [address] 10/08/2025 1:00 PM EST Office Visit [facility] CHC ADULT DENTAL [address] [place], [place] [phone] Monica Arevalo [address] [place] [address] 10/13/2025 2:30 PM EST Office Visit [facility] ADULT DENTAL [address] [place] [address] Rohit Richardson DDS [address] [place] [address] 01/07/2026 2:30 PM EST Office Visit [facility] OPTOMETRY [address] [place] [address] Tiara Aquino OD [address] [place] [address] documented as of this encounter Visit Diagnoses Diagnosis Possible exposure to STD documented in this encounter Additional Health Concerns Assessment Noted Time PHQ-9 Depression Total Score: 3 06/24/20 24 4:01 PM EDT documented as of this encounter Care Teams Media Director Relationship Specialty Start Date End Date Gracia Interiano DO [address] [place] [address] PCP - General Family Medicine 02/01/12 Heath Mae FNP [address] [place] [address] Nurse Practitioner Family Medicine 10/18/23 documented as of this encounter
--- OUTSIDE RECORDS SUMMARY | 2025-09-21 07:34 | XMS_ITS | Encounter Summary ---
Author Organization [employer] Address [address] [facility] 7t [place] [address] Care Team Providers Care Jack Tamp Operator Name Role Phone Gracia Interiano DO Primary Care Provider + [phone] Heath Mae Unavailable Unavailable Reason for Visit * Reason Onset Date Comments triage 10/31/2022 Encounter Details Date Type Department Care Team ([facility] st Contact Info) Description 10/31/2022 Telephone [facility] MEDICINE [address] [place], [place] [phone] Gracia Interiano DO [address] [place], [place] [phone] triage Social History Tobacco Use Types Packs/Day [...] No answer LVM to return call to [facility] triage line. * Telephone Encounter - Starla [...] Description 09/22/2025 8:30 AM EST Office Visit [facility] MEDICINE [address] [place] [address] Duane Angel MD [address] [place] [address] 10/08/2025 1:00 PM EST Office Visit [facility] CHC ADULT DENTAL [address] [place] [address] Monica Arevalo 91 [place] [address] 10/13/2025 2:30 PM EST Office Visit [facility] ADULT DENTAL [address] [place] [address] Rohit Richardson DDS [address] [place] [address] 01/07/2026 2:30 PM EST Office Visit [facility] OPTOMETRY [address] [place] [address] Tiara Aquino, OD [address] [place] [address] documented as of this encounter Visit Diagnoses Not on filedocumented in this encounter Care Teams Jack Tamp Operator Relationship Specialty Start Date End Date Gracia Interiano DO [address] [place] [address] PCP - General Family Medicine 02/01/12 Heath Mae FNP [address] [place] [address] Nurse Practitioner Family Medicine 10/18/23 documented as of this encounter
--- OUTSIDE RECORDS SUMMARY | 2025-09-21 07:34 | XMS_ITS | Encounter Summary ---
Author Organization [employer] Address 75 [facility] 7t [place] [address] Care Team Providers Care Link Knitting Machine Operator Name Role Phone Laisha Gracia Primary Care Provider + [phone] Heath Mae Unavailable Unavailable Reason for Visit * Reason Onset Date Comments cxn due to weather wants to rs 12/04/2023 Encounter Details Date Type Department Care Team (Late st Contact Info) Description 12/04/2023 Telephone [facility] DENTAL [address] [place], [place] [phone] Monica Arevalo 91 [place] [address] cxn due to weather wants to rs [...] * Telephone Encounter - Aleida Raman - 12/04/2023 10:42 AM EST Patient called to cancel and rs scaling appt. Unable to rs scaling appts in [facility] center. Called [facility] non answer. Patient has bee informed that message will be sent to [facility] and they will receive a call to byron REESE documented in this encounter Plan of Treatment Upcoming Encounters Date Type Department Care Team (Late st Contact Info) Description 09/22/2025 8:30 AM EST Office Visit [facility] MEDICINE [address] [place] [address] Duane Angel MD [address] [place] [address] 10/08/2025 1:00 PM EST Office Visit [facility] CHC ADULT DENTAL [address] [place], [place] [phone] Monica Arevalo [address] [place] [phone] 10/13/2025 2:30 PM EST Office Visit [facility] ADULT DENTAL [address] [place] [address] Rohit Richardson DDS [address] [place], [place] [phone] 01/07/2026 2:30 PM EST Office Visit [facility] OPTOMETRY [address] [place], [place] [phone] Tiara Aquino, OD [address] [place] [address] documented as of this encounter Visit Diagnoses Not on filedocumented in this encounter Additional Health Concerns Assessment Noted Time PHQ-9 Depression Total Score: 2 10/18/20 23 2:35 PM EST documented as of this encounter Care Teams Link Knitting Machine Operator Relationship Specialty Start Date End Date Gracia Interiano DO [address] [place], [place] [phone] PCP - General Family Medicine 02/01/12 Heath Mae FNP [address] [place] [address] Nurse Practitioner Family Medicine 10/18/23 documented as of this encounter
--- OUTSIDE RECORDS SUMMARY | 2025-09-21 07:34 | XMS_ITS | Encounter Summary ---
Author Organization [employer] Address [address] [facility] [address] 7t [place] [address] Care Team Providers Care Professor Of Sport Management Name Role Phone LaishaGracia Primary Care Provider + [phone] Heath Mae Unavailable Unavailable Encounter Details Date Type Department Care Team (Late st Contact Info) Description 01/22/2025 Orders Only [facility] CHC MED & PEDS [address] [place], [place] [phone] Provider, MD Kari Social History Tobacco Use [...] Description 09/22/2025 8:30 AM EST Office Visit [facility] MEDICINE [address] [place] [address] Duane Angel MD 230 [place] [address] 10/08/2025 1:00 PM EST Office Visit [facility] CHC ADULT DENTAL [address] [place] [address] Monica Arevalo 91 [place] [address] 10/13/2025 2:30 PM EST Office Visit [facility] ADULT DENTAL [address] [place] [address] Rohit Richardson, DDS [address] [place] [address] 01/07/2026 2:30 PM EST Office Visit [facility] OPTOMETRY [address] [place] [address] Tarka, Tiara, OD [address] [place] [address] documented as of this encounter Procedures Procedure [...] documented as of this encounter Care Teams Professor Of Sport Management Relationship Specialty Start Date End Date Gracia Interiano DO 230 [place] [address] PCP - General Family Medicine 02/01/12 Heath Mae FNP [address] [place] [address] Nurse Practitioner Family Medicine 10/18/23 documented as of this encounter
--- OUTSIDE RECORDS SUMMARY | 2025-09-21 07:34 | XMS_ITS | Encounter Summary ---
Author Organization [employer] Address [address] [facility] [address] 7t [place] [address] Care Team Providers Care Reed Or Wind Instrument Tuner Name Role Phone LaishaGracia Primary Care Provider + [phone] Heath Mae Unavailable Unavailable Reason for Visit * Reason Comments Med Refill Encounter Details Date Type Department Care Team ([facility] st Contact Info) Description 09/16/2024 Refill [facility] MEDICINE [address] [place], [place] [phone] Duane Angel MD [address] [place] [address] Uncomplicated alcohol dependence (CMS/HCC) Social History Tobacco [...] Description 09/22/2025 8:30 AM EST Office Visit [facility] MEDICINE [address] [place] [address] Duane Angel MD [address] [place] [address] 10/08/2025 1:00 PM EST Office Visit [facility] ADULT DENTAL [address] [place] [address] Monica Arevalo 91 [place] [address] 10/13/2025 2:30 PM EST Office Visit [facility] ADULT DENTAL [address] [place] [address] Rohit Richardson DDS [address] [place] [address] 01/07/2026 2:30 PM EST Office Visit [facility] OPTOMETRY [address] [place] [address] Tiara Aquino, OD [address] [place] [address] documented as of this encounter Visit Diagnoses Diagnosis Uncomplicated alcohol dependence (CMS/HCC) (HCC) documented in this encounter Additional Health Concerns Assessment Noted Time PHQ-9 Depression Total Score: 3 05/12/20 24 4:01 PM EDT documented as of this encounter Care Teams Reed Or Wind Instrument Tuner Relationship Specialty Start Date End Date Gracia Interiano DO [address] [place] [address] PCP - General Family Medicine 02/01/12 Heath Mae FNP [address] [place] [address] Nurse Practitioner Family Medicine 10/18/23 documented as of this encounter
--- OUTSIDE RECORDS SUMMARY | 2025-09-21 07:34 | XMS_ITS | Encounter Summary ---
Author Organization [employer] Address [address] [place] [address] 7t [place] [address] Care Team Providers Care Sanding Machine Operator Name Role Phone LaishaGracia Primary Care Provider + [phone] Heath Mae Unavailable Unavailable Reason for Visit * Reason Onset Date Comments Med Refill 02/26/2023 Encounter Details Date Type Department Care Team (Late st Contact Info) Description 02/26/2023 Telephone [facility] DENTAL [address] [place] [phone] Jo-Ann Tamez BDZee Med Refill Social History [...] Description 09/22/2025 8:30 AM EST Office Visit [facility] MEDICINE 230 [place] [address] Duane Angel MD [address] [place] [address] 10/08/2025 1:00 PM EST Office Visit [facility] CHC ADULT DENTAL [address] [facility] [place] [address] Monica Arevalo 91 [place], [place] [phone] 10/13/2025 2:30 PM EST Office Visit [facility] ADULT DENTAL 230 [place] [address] Rohit Richardson DDS 230 [place] [address] 01/07/2026 2:30 PM EST Office Visit [facility] OPTOMETRY [address] [place] [address] TarTiara moreno, OD 267 [place] [address] documented as of this encounter Visit Diagnoses Not on filedocumented in this encounter Additional Health Concerns Assessment Noted Time PHQ-9 Depression Total Score: 3 02/20/20 23 1:47 PM EDT documented as of this encounter Care Teams Sanding Machine Operator Relationship Specialty Start Date End Date Gracia Interiano DO [address] [place] [address] PCP - General Family Medicine 02/01/12 Heath Mae FNP [address] [place] [address] Nurse Practitioner Family Medicine 10/18/23 documented as of this encounter
--- OUTSIDE RECORDS SUMMARY | 2025-09-21 07:34 | XMS_ITS | Clinical Summary ---
Author Organization [facility] Address [address] [place] [address] Care Team Providers Care Business Analyst Intern Name Role Phone Unavailable Primary Care Provider [...] or ortho at this time -advised contact [facility] if sx worsen Alcohol use disorder, severe, in sustained remis alberta 03/05/2023 Overview (07/31/2024): Last Assessment & Plan: [...] cancer screening Episodic mood disorder 12/13/2015 Overview (07/31/2024): Last Assessment & Plan: [...] retiring, patient will be referred to new [facility] Psychiatric prescriber. He is aware those appts will be via televisit, and that provider will not be an employe of [facility]. Therefore he gives consent to share PHI. Any issues or concerns, contact [facility]. All his questions were answered and I have wished him well. He agrees with the plan. Immunizations Immunization Administration Dates Next Due Flu, Multi Dose 0.5 ML 09/01/2019,08/15/2018, Flu, Preservative Free 08/20/2023,2021,09/19/2021,07/30,08/29/2017,12/13/2015 Hep B, Adult/Adol (CERHEHU-N-HKHKI/RECOMBIVAX-ADULT) 08/11/2013,08/02/2012,12/27/2011 INFLUENZA, SEASONAL, INJECTABLE 08/26/2014,01/12 PNEUMOCOCCAL CONJUGATE PCV 2 0 (Prevnar 20) 02/19/2024 PNEUMOCOCCAL POLYSACCHARIDE PPV23 (Pneumovax 23) 01/12/2012 PNEUMOCOCCAL, UNSPECIFIED FORMULATION 01/12/2012 [facility] Funded Flu Vaccine 08/11/2013, 012 TDAP 08/02/2012 [...] file Not on file Not on file Media Manager Not on file Not on file Not on file Plan of Treatment Health Maintenance Due Date Last Done Comments Anxiety Screening 1973 Tobacco Cessation Counseling (#1) 1973 Tobacco Screening 1973 Syphilis Screening 05/26/1987 Hypertension Screening (#1) 1991 Imm-Hepatitis A (1 of 2 - Ri sk 2-dose series) 1992 CT Colonography 2018 Colonoscopy 2018 Colorectal Cancer Screening 2018 FIT/gFOBT 2018 Fecal DNA 2018 Flexible Sigmoidoscopy 2018 Imm-Zoster, Recombinant (1 of 2) 2023 Diabetes Screening 08/21/2024 08/21/2023, 1 11/23/2020, 01/10/2021 HIV Screening 08/21/2024 08/21/2023, 04/19, 02/08/2022, Additional history exists Lipid Screening 08/21/2024 08/21/2023 Alcohol and Drug Screen 11/19/2024 Depression Annual Screen 11/19/2024 [id number] ( season) 2025 08/28/2023, 09/20/2022, 11/23/2021, Additional history exists Imm-Influenza (#1) 2025 08/20/2023, 1 , 09/19/2021, Additional history exists Imm-DTaP/Tdap/Td (3 - Td or Tdap) 02/18/2034 024, 08/02/2012 Imm-Hepatitis B Completed 08/11/2013, 07/20, 12/27/2011 Imm-Pneumococcal 50+ Completed 02/19/2024, 01/12/2012, 01/12/2012 Insurance [employer] COM
== END 2025-09-21 07:33 | disposition home or self-care (01) ==
LOC: HO.US 07:32
PROVIDERS: PCP Family Medicine; Visit Provider Family Medicine
DX: F10.21 Alcohol dependence, in remission (principal)
CPT/HCPCS: 76700

== ENCOUNTER → 2025-09-21 07:34 | Outpatient (BNV) | payer OTHER, SELFPAY | PROVIDERS: PCP Family Medicine; Visit Provider Radiology Diagnostic Radiology | DX: R16.1 Splenomegaly, not elsewhere classified (principal) | CPT/HCPCS: 76700 ==

== ENCOUNTER 2025-10-28 14:35 | Outpatient (REF) | payer OTHER, SELFPAY ==
[2025-10-28 16:14] LABS: MANUAL DIFF FLAG NO
[2025-10-28 16:28] LABS: Hematocrit 39.6 % (42.0-52.0); Hemoglobin 14.3 g/dl (14.0-18.0); Mean Corpuscular HGB Conc 36.1 g/dl (31.0-36.0); Mean Corpuscular Hemoglobin 30.6 pg (27.0-33.0); Mean Corpuscular Volume 84.6 fL (80.0-98.0); NRBC Abs Auto 0.000 X10*3/uL (0.0-0.012); NRBC Pct Auto 0.0 /100WBC (0.0-0.2); Platelet Count 273 X10*3/uL (160-400); Red Blood Count 4.68 X10*6/uL (4.60-5.80); White Blood Count 8.4 X10*3/uL (4.8-10.8)
[2025-10-28 16:46] LABS: Hematocrit 40.7 % (42.0-52.0); Hemoglobin 14.1 g/dl (14.0-18.0); Imm Gran Abs Auto 0.03 X10*3/uL (0.00-0.03); Imm Gran Pct Auto 0.4 % (0.0-0.4); Lymphocytes Absolute Auto 2.6 X10*3/uL (1.2-4.9); Mean Corpuscular HGB Conc 34.6 g/dl (31.0-36.0); Mean Corpuscular Hemoglobin 29.6 pg (27.0-33.0); Mean Corpuscular Volume 85.5 fL (80.0-98.0); NRBC Abs Auto 0.000 X10*3/uL (0.0-0.012); NRBC Pct Auto 0.0 /100WBC (0.0-0.2); Platelet Count 280 X10*3/uL (160-400); Red Blood Count 4.76 X10*6/uL (4.60-5.80); White Blood Count 8.0 X10*3/uL (4.8-10.8)
[2025-10-28 16:58] LABS: Alanine Aminotransferase 68 U/L (0-40); Alanine Aminotransferase 82 U/L (0-40); Albumin Level 4.5 g/dL (3.5-5.0); Albumin Level 4.6 g/dL (3.5-5.0); Alkaline Phosphatase 88 U/L (39-117); Anion Gap 13 (12-20); Aspartate Amino Transferase 47 U/L (5-37); Aspartate Amino Transferase 50 U/L (5-37); Blood Urea Nitrogen 14 mg/dL (9-16); Calcium 9.1 mg/dL (8.4-10.2); Calcium 9.2 mg/dL (8.4-10.2); Carbon Dioxide 24 mmol/L (22-29); Carbon Dioxide 25 mmol/L (22-29); Chloride 107 mmol/L (96-108); Cholesterol 182 mg/dL (<200); Estimated Glomerular Filt Rate > 60; Free T4 (Free Thyroxine) 0.87 ng/dL (0.71-1.85); HDL Cholesterol 41 mg/dL (>40); Potassium 3.9 mmol/L (3.3-5.1); Potassium 4.0 mmol/L (3.3-5.1); Sodium 140 mmol/L (135-145); Sodium 141 mmol/L (135-145); Thyroid Stimulating Hormone 2.86 uIU/mL (0.32-4.0); Total Protein 7.2 g/dL (6.5-8.0); Total Protein 7.3 g/dL (6.5-8.0); Triglycerides 345 mg/dL (<150)
--- OUTSIDE RECORDS SUMMARY | 2025-10-28 22:58 | XMS_ITS | Encounter Summary ---
Author Organization [employer] Address [address] [facility] [address] 7t [place] [address] Care Team Providers Care Vp Cardiovascular Service Line Name Role Phone LaishaGracia Primary Care Provider + [phone] Heath Mae Unavailable Unavailable Reason for Visit * Reason Comments Med Refill Encounter Details Date Type Department Care Team ([facility] st Contact Info) Description 09/16/2024 Refill [facility] MEDICINE [address] [place], [place] [phone] Duane Angel MD [address] [place] [address] Uncomplicated alcohol dependence (CMS/HCC) Social History Tobacco [...] Care Team (Late st Contact Info) Description 11/04/2025 3:30 PM EST Office Visit [facility] MEDICINE [address] [place] [address] Gracia Interiano DO [address] [place] [address] 11/17/2025 9:30 AM EST Office Visit [facility] MEDICINE [address] [place] [address] Duane Angel MD [address] [place] [address] 01/07/2026 2:30 PM EST Office Visit [facility] OPTOMETRY [address] [place] [address] Tiara Aquino, OD [address] [place] [address] documented as of this encounter Visit Diagnoses Diagnosis Uncomplicated alcohol dependence (CMS/HCC) (HCC) documented in this encounter Additional Health Concerns Assessment Noted Time PHQ-9 Depression Total Score: 3 05/12/20 24 4:01 PM EDT documented as of this encounter Care Teams Vp Cardiovascular Service Line Relationship Specialty Start Date End Date Gracia Interiano DO [address] [place] [address] PCP - General Family Medicine 02/01/12 Heath Mae FNP [address] [place] [address] Nurse Practitioner Family Medicine 10/18/23 documented as of this encounter
--- OUTSIDE RECORDS SUMMARY | 2025-10-28 22:58 | XMS_ITS | Encounter Summary ---
Author Organization [employer] Address [address] [place] [address] 7t [place] [address] Care Team Providers Care Woodworking Machine Setter Name Role Phone LaishaGracia Primary Care Provider + [phone] Heath Mae Unavailable Unavailable Reason for Visit * Reason Onset Date Comments Med Refill 02/26/2023 Encounter Details Date Type Department Care Team (Late st Contact Info) Description 02/26/2023 Telephone [facility] DENTAL [address] [place] [address] [phone] Jo-Ann Tamez BDZee Med Refill Social History [...] Description 11/04/2025 3:30 PM EST Office Visit [facility] MEDICINE [address] [place] [address] Gracia Interiano DO [address] [place] [address] 11/17/2025 9:30 AM EST Office Visit [facility] MEDICINE [address] [place] [address] Duane Angel MD [address] [place] [address] 01/07/2026 2:30 PM EST Office Visit [facility] OPTOMETRY [address] [place], [place] [phone] Tiara Aquino OD [address] [place] [address] documented as of this encounter Visit Diagnoses Not on filedocumented in this encounter Additional Health Concerns Assessment Noted Time PHQ-9 Depression Total Score: 3 02/20/20 23 1:47 PM EDT documented as of this encounter Care Teams Woodworking Machine Setter Relationship Specialty Start Date End Date Gracia Interiano DO [address] [place] [address] PCP - General Family Medicine 02/01/12 Heath Mae FNP [address] [place] [address] Nurse Practitioner Family Medicine 10/18/23 documented as of this encounter
--- OUTSIDE RECORDS SUMMARY | 2025-10-28 22:58 | XMS_ITS | Encounter Summary ---
Author Organization [employer] Address [address] 7t [place] [address] Care Team Providers Care Fashion Adviser Name Role Phone Gracia Interiano DO Primary Care Provider + [phone] Heath Mae Unavailable Unavailable Reason for Visit * Reason Comments Med Refill Encounter Details Date Type Department Care Team ([facility] st Contact Info) Description 11/19/2024 Refill [facility] MEDICINE 230 [place], [place] [phone] Gracia Interiano DO [address] [place] [address] Possible exposure to STD Social History Tobacco [...] Description 11/04/2025 3:30 PM EST Office Visit [facility] MEDICINE [address] [place] [address] Gracia Interiano DO [address] [place] [address] 11/17/2025 9:30 AM EST Office Visit [facility] MEDICINE [address] [place] [address] Duane Angel MD [address] [place] [address] 01/07/2026 2:30 PM EST Office Visit [facility] OPTOMETRY [address] [place] [address] Tiara Aquino, OD [address] [place] [address] documented as of this encounter Visit Diagnoses Diagnosis Possible exposure to STD documented in this encounter Additional Health Concerns Assessment Noted Time PHQ-9 Depression Total Score: 3 05/12/20 4:01 PM EDT documented as of this encounter Care Teams Fashion Adviser Relationship Specialty Start Date End Date Gracia Interiano DO [address] [place] [address] PCP - General Family Medicine 02/01/12 Heath Mae FNP [address] [place] [address] Nurse Practitioner Family Medicine 10/18/23 documented as of this encounter
--- OUTSIDE RECORDS SUMMARY | 2025-10-28 22:58 | XMS_ITS | Encounter Summary ---
Author Organization [employer] Address [address] [facility] 7t [place] [address] Care Team Providers Care Manager Of Planning Name Role Phone Gracia Interiano DO Primary Care Provider + [phone] Heath Mae Unavailable Unavailable Reason for Visit * Reason Onset Date Comments triage 10/31/2022 Encounter Details Date Type Department Care Team ([facility] st Contact Info) Description 10/31/2022 Telephone [facility] MEDICINE [address] [place], [place] [phone] Gracia Interiano DO 230 [place], [place] [phone] triage Social History Tobacco Use Types Packs/Day [...] No answer LVM to return call to [facility] triage line. * Telephone Encounter - Starla [...] Description 11/04/2025 3:30 PM EST Office Visit [facility] MEDICINE [address] [place] [address] Gracia Interiano DO [address] [place] [address] 11/17/2025 9:30 AM EST Office Visit [facility] MEDICINE [address] [place] [address] Duane Angel MD [address] [place] [address] 01/07/2026 2:30 PM EST Office Visit [facility] OPTOMETRY [address] [place] [address] Tiara Aquino, OD [address] [place] [address] documented as of this encounter Visit Diagnoses Not on filedocumented in this encounter Care Teams Manager Of Planning Relationship Specialty Start Date End Date Gracia Interiano DO [address] [place] [address] PCP - General Family Medicine 02/01/12 Heath Mae FNP [address] [place] [address] Nurse Practitioner Family Medicine 10/18/23 documented as of this encounter
--- OUTSIDE RECORDS SUMMARY | 2025-10-28 22:58 | XMS_ITS | Encounter Summary ---
Author Organization [employer] Address [address] [place] [address] Care Team Providers Care Recycling Manager Name Role Phone LaishaGracia Primary Care Provider + [phone] Heath Mae Unavailable Unavailable Encounter Details Date Type Department Care Team (Late st Contact Info) Description 10/28/2025 Orders Only GENERIC EXTERNAL DATA DEPARTMENT Provider, Generic External Data Social History Tobacco Use Types Packs/Day Years Used Date Smoking Tobacco: Former Cigarettes Passive Smoke Exposure: Past Smokeless Tobacco: Former Alcohol Use Standard Drinks/Week Comments Never 0 (1 standard drink = 0.6 oz pur e alcohol) Depression Answer Date Recorded Patient Health Questionnaire-9 Score 2 10/09/2025 Patient Health Questionnaire-9 Score 2 10/09/2025 Last PHQ-9: Questionnaire Data Not on file 1 12/09/2024 Housing Stability Answer Date Recorded What is [...] Date Recorded Patient Health Questionnaire-2 Score 0 10/09/2025 Internet Access Answer Date Recorded Internet Access [...] Description 11/04/2025 3:30 PM EST Office Visit [facility] [address] [place] [address] Gracia Interiano DO [address] [place] [address] 11/17/2025 9:30 AM EST Office Visit [facility] [address] [place] [address] Duane Angel MD [address] [place] [address] 01/07/2026 2:30 PM EST Office Visit [facility] [address] [place] [address] Tiara Aquino, OD [address] [place] [address] documented as of this encounter Procedures Procedure Name Priority Date/Time Associated Diagnosis Comments HOLD LAVENDER - POSSIBLE HEMATOLOGY Routine 10/28/2025 2:43 PM EST TSH W/REFLEX TO FT4 Routine 10/28/2025 2 :43 PM EST CBC WITH AUTO DIFFERENTIAL Routine 10/28/2025 2:43 PM EST GLUCOSE Routine 10/28/2025 2:43 PM EST HEPATIC FUNCTION PANEL Routine 2:43 PM EST COMPREHENSIVE METABOLIC PANEL Routine 10/28/2025 2:43 PM EST documented in this encounter Results * TSH with Reflex to Free T4 (10/28/2025 2:43 PM EST) TSH reflex Free T4 2.82 0.32 - 4.0 uIU/mL [facility] 10/28/2025 2:43 PM EST 10/28/2025 4:14 PM EST us Generic External Data Provider LAB BLOOD ORDERAB LES Final Result Performing Organization Address [facility] de Phone Number [facility] [address] [place] [phone] * (ABNORMAL) Glucose (10/28/2025 2:43 PM EST) Glucose Fasting 103(H) 60 - 99 mg/dL [facility] Comment:A fasting glucose fr om 100-125 mg/dl is considered impaired(pre-diabetes). 10/28/2025 2:43 PM EST 10/28/2025 4:14 PM EST us Generic External Data Provider LAB BLOOD ORDERAB LES Final Result Performing Organization Address [facility] Co de Phone Number [facility] [address] [place] [phone] * Hepatic Function Panel (10/28/2025 2:43 PM EST) Bilirubin, Direct 0.1 0.0 - 0.5 mg/dL [facility] 10/28/2025 2:43 PM EST 10/28/2025 4:14 PM EST Generic External Data Provider LAB BLOOD ORDERAB LES Final Result Performing Organization Address [facility] Co de Phone Number [facility] [address] [place] [address] [place] [phone] * (ABNORMAL) Comprehensive Metabolic Panel (10/28/2025 2:43 PM EST) [facility] Sodium 141 135 - 145 mmol/L [facility] Potassium 4.0 3.3 - 5.1 mmol/L [facility] Chloride 107 96 - 108 mmol/L [facility] Carbon Dioxide 25 22 - 29 mmol/L [facility] Anion Gap 13 12 - 20 [facility] Urea Nitrogen (BUN) 14 9 - 16 mg/dL [facility] Creatinine, Serum 0.87 0.5 - 1.4 mg/dL [facility] Estimated Glomerular Filt Rate >60 [facility] Comment:Chronic Kidney Disea se: Estimated GFR < 60 mL/min/1.57w4Hoajrv Kidney Disease: Estimated GFR < 15 mL/min/1.73m2 Glucose 103 60 - 115 mg/dL [facility] Calcium 9.2 8.4 - 10.2 mg/dL [facility] Bilirubin, Total 0.3 0.0 - 1.0 mg/dL [facility] Aspartate Amino Transferase 47(H) 5 - 37 U/L [facility] Alanine Aminotransferase 68(H) 0 - 40 U/L [facility] Total Protein 7.2 6.5 - 8.0 g/dL [facility] Albumin Level 4.6 3.5 - 5.0 g/dL [facility] Alkaline Phosphatase 88 39 - 117 U/L [facility] 10/28/2025 2:43 PM EST 10/28/2025 4:14 PM EST us Generic External Data Provider LAB BLOOD ORDERAB LES Final Result [facility] [address] [place] [phone] * (ABNORMAL) CBC auto differential (10/28/2025 2:43 PM EST) [facility] White Blood Count 8.0 4.8 - 10.8 X10*3/uL [facility] Red Blood Count 4.76 4.60 - 5.80 X10*6/uL [facility] Hemoglobin 14.1 14.0 - 18.0 g/dl [facility] Hematocrit 40.7(L) 42.0 - 52.0 % [facility] Mean Corpuscular Volume 85.5 80.0 - 98.0 fL [facility] Mean Corpuscular Hemoglobin 29.6 27.0 - 33.0 pg [facility] Mean Corpuscular HGB Conc 34.6 31.0 - 36.0 g/dl [facility] Red Cell Distribution Width 12.6 11.0 - 16.0 % [facility] Platelet Count 280 160 - 400 X10*3/uL [facility] Mean Platelet Volume 11.0 9.4 - 12.4 fL [facility] Neutrophils Percent Auto 53.4 45 - 73 % [facility] Imm Gran Pct Auto 0.4 0.0 - 0.4 % [facility] Lymphocytes Percent Auto 32.9 20 - 40 % [facility] Monocytes Percent Auto 8.9 2 - 11 % [facility] Eosinophils Percent Auto 3.6 0 - 4 % [facility] Basophils Percent Auto 0.8 0 - 2 % [facility] NRBC Pct Auto 0.0 0.0 - 0.2 /100WBC [facility] Neutrophils Absolute Auto 4.3 2.0 - 8.3 x10*3/uL [facility] Imm Gran Abs Auto 0.03 0.00 - 0.03 X10*3/uL [facility] Lymphocytes Absolute Auto 2.6 1.2 - 4.9 X10*3/uL [facility] Monocytes Absolute Auto 0.7 0.1 - 1.2 X10*3/uL [facility] Eosinophils Absolute Auto 0.3 0.0 - 0.4 X10*3/uL [facility] Basophils Absolute Auto 0.1 0.0 - 0.2 X10*3/uL [facility] NRBC Abs Auto 0.000 0.0 - 0.012 X10*3/uL [facility] 10/28/2025 2:43 PM EST 10/28/2025 4:11 PM EST us Generic External Data Provider LAB BLOOD ORDERAB LES Final Result Performing Organization Address [facility] de Phone Number [facility] [address] [place] [phone] * Hold Lavender - Possible Hematology (10/28/2025 2:43 PM EST) Hold Lavender - Possible Hematololgy SEE NOTE [facility] Comment:Specimen will be hel d untested for 8 hours. Call Hematologyif testing is desired. 10/28/2025 2:43 PM EST 10/28/2025 4:37 PM EST us Generic External Data Provider HISTORICAL/NON OR DERABLE LABS Final Result Performing Organization Address [facility] de Phone Number [facility] [address] [place] [phone] documented in this encounter Visit Diagnoses Not on filedocumented in this encounter Additional Health Concerns Assessment Noted Time PHQ-9 Depression Total Score: 2 10/09/20 25 3:10 PM EST documented as of this encounter Care Teams Recycling Manager Relationship Specialty Start Date End Date Gracia Interiano DO [address] [place] [address] PCP - General Family Medicine 02/01/12 Heath Mae FNP [address] [place] [address] Nurse Practitioner Family Medicine 10/18/23 documented as of this encounter
--- OUTSIDE RECORDS SUMMARY | 2025-10-28 22:58 | XMS_ITS | Clinical Summary ---
Author Organization [employer] Address [address] [place] [address] Care Team Providers Care Automation Control Technician Name Role Phone DanielGracia pelletier Primary Care Provider [phone] Heath Mae Unavailable Unavailable Allergies Active Allergy [...] not taking.Reported on 08/13/2025 Fluocinolone Acetonide Scalp ([place]-Smoothe/F S Scalp) 0.01 % oilIndications:S eborrheic dermatitis Apply at night 2-3 times weekly 118.28 mL 3 024 Active naproxen (Naprosyn) 500 MG tablet Take 1 tablet (500 mg) by mouth if needed in the morning and at bedtime for mild pain. 40 tablet 1 025 Active Citrucel 500 MG tablet Take 1 [...] BY MOUTH EVERY MORNING 30 tablet 2 Active betamethasone valerate (Valisone) 0.1 % cream Apply topically 2 times daily. 30 g 1 Active Additional Information Patient not taking.Reported on 08/13/2025 clotrimazole (Lotrimin) 1 % cream Apply topically 2 times daily. 60 g 3 Active cetirizine (ZyrTEC) 10 MG tablet Take 1 tablet (10 mg) by mouth Once per day. 90 tablet 3 025 2025 Active hydrOXYzine HCl (Atarax) 25 MG tablet Take 1 tablet (25 mg) by mouth every 6 (six) hours if needed for itching. 40 tablet 1 Active Additional Information Patient not taking.Reported on 08/13/2025 QUEtiapine (SEROquel) 25 MG tabletIndication s:Auditory hallucinations TAKE 1 TABLET BY MOUTH EVERY MORNING. TAKE WITH 50 MG TABLETS IN THE MORNING 30 tablet 1 Active QUEtiapine (SEROquel) 100 MG tabletIndication s:Auditory hallucinations TAKE 1 TABLET BY MOUTH AT BEDTIME 30 tablet 1 025 Active QUEtiapine (SEROquel) 50 MG tabletIndication s:Auditory hallucinations TAKE 1 TABLET BY MOUTH EVERY MORNING. TAKE WITH SEROQUEL 25 MG IN THE MORNING. 30 tablet 1 Active hydrocortisone 2.5 % creamIndications :Seborrheic dermatitis APPLY TOPICALLY ONCE DAILY NEEDED FOR RASH OR IRRITATION(FACE RASH) 30 g 1 025 Active omeprazole (PriLOSEC) [address] capsuleIndicatio ns:Gastroesophag eal reflux disease, unspecified whether esophagitis present TAKE 1 CAPSULE BY MOUTH TWICE DAILY BEFORE BREAKFAST AND BEFORE SUPPER 180 capsule 10/13/20 4:22 PM EST Active Vivitrol injectionIndicat ions:Uncomplicat ed alcohol dependence (CMS/HCC) ([facility]) INJECT 4 ML (380 MG) INTRAMUSCULARLY EVERY 28 DAYS DIRECTED 1 each 5 10/20/20 9:21 AM EST Active hydrocortisone 2.5 % creamIndications :Seborrheic dermatitis Apply topically Once daily as needed for rash or irritation. Face rash 28 g 1 024 2024 Discontinued Vivitrol injectionIndicat ions:Uncomplicat ed alcohol dependence (CMS/HCC) (HCC) INJECT 4 ML (380mg) INTRAMUSCULARLY EVERY 28 DAYS DIRECTED 1 each 5 025 2024 Discontinued omeprazole (PriLOSEC) [address] capsuleIndicatio ns:Gastroesophag eal reflux disease, unspecified whether esophagitis present TAKE 1 CAPSULE BY MOUTH TWICE DAILY BEFORE BREAKFAST AND SUPPER 180 capsule 2024 Discontinued Hospital, Clinic, or Other Facility Administered Medication Ordered Dose Route Frequency Start Date End Date Status naltrexone ER (Vivitrol) injection 380 mgIndications:Alcohol use disorder, severe, in sustained remission (CMS/HCC) ([facility]) 380 mg IM Once 10/20/2025 10/20/2025 Ended Active Problems Problem Noted Date Diagnosed Date Bipolar affective disorder, currently active (CM S/HCC) 10/09/2025 Allergic reaction 07/01/2025 Overview (08/13/2025): I started [...] at this time -advised contact [facility] if sx worsen Alcohol use disorder, severe , in sustained remission (CMS/HCC) 03/05/2023 Assessment & Plan (02/19/2024 2:12 PM [...] will be referred to new [facility] Psychiatric prescriber. He is aware those appts will be via televisit, and that provider will not be an employe of [facility]. Therefore he gives consent to share PHI. Any issues or concerns, contact [facility]. All his questions were answered and I [...] will be referred to new [facility] Psychiatric prescriber. He is aware those appts will be via televisit, and that provider will not be an employe of [facility]. Therefore he gives consent to share PHI. Any issues or concerns, contact [facility]. All his questions were answered and I have wished him well. He agrees with the plan. Resolved Problems Problem Noted Date Diagnosed Date Resolved Date Alcohol dependence 12/13/2015 3 Anxiety 12/13/2015 12/17/2024 Encounters * This document contains information received from the source organization and may not represent a complete record from that organization. Date Type Department Care Team Description 10/28/2025 Orders Only GENERIC EXTERNAL DATA DEPARTMENT Provider, Generic External Data 10/26/2025 Travel 10/22/2025 Telephone [facility] MEDICINE [address] [place] [phone] Gracia Interiano DO Recall Apointment 10/22/2025 Travel 10/20/2025 9:30 AM EST Office Visit [facility] MEDICINE [address] [place] [address] Duane Angel MD Alcohol use disorder, severe, in sustained remission (CMS/HCC) ([facility]) (Primary Dx) 10/19/2025 Travel 10/13/2025 1:00 PM EST Office Visit [facility] ADULT DENTAL [address], [place] [phone] JamilakharyDaniel Caries (Primary Dx) 10/13/2025 Refill [facility] MEDICINE [address], [place] [phone] Duane Angel MD Uncomplicated alcohol dependence (CMS/HCC) (HCC) 10/12/2025 Refill [facility] MEDICINE [address] [place] [address] Gracia Interiano DO Gastroesophageal reflux disease, unspecified whether esophagitis present 10/06/2025 Travel 10/06/2025 Telephone [facility] ADULT DENTAL [address] [facility] [address] Rohit Richardson DDS 10/05/2025 Refill [facility] MEDICINE [address] [place] [phone] Parul Felder MD Seborrheic dermatitis 10/04/2025 Travel 09/24/2025 Refill [facility] MEDICINE [address] [place] [phone] Duane Angel MD Auditory hallucinations 09/24/2025 Refill [facility] MEDICINE [address] [place] [phone] Gracia Interiano DO Auditory hallucinations 09/22/2025 8:30 AM EST Office Visit [address] [address] Duane Angel MD Alcohol use disorder, severe, in sustained remission (CMS/HCC) (HCC) (Primary Dx); Auditory hallucination 09/22/2025 Travel 09/04/2025 Travel 08/25/2025 8:30 AM EDT Office Visit [address] [address] Duane Angel MD Alcohol use disorder, severe, in sustained remission (CMS/HCC) (HCC) (Primary Dx); Auditory hallucinations 08/25/2025 Travel 08/24/2025 Telephone [facility] MEDICINE [address] [place] [phone] Gracia Interiano DO Med Refill 08/24/[address] [address] Gracia Interiano DO Auditory hallucinations 08/18/2025 Travel 08/13/2025 1:00 PM EDT Office Visit [facility] ADULT DENTAL [address] [place] [address] Shiraz Hilliard DMD from Last 3 Months Immunizations Immunization Administration [...] Sign Reading Time Taken Comments Blood Pressure 110/70 10/13/2025 1:03 PM EST Pulse 84 08/25/2025 8:45 AM EDT Temperature [...] 3:30 PM EST Office Visit [facility] MEDICINE [address] [place] [phone] Gracia Interiano DO [address] [place], [place] [phone] 11/17/2025 9:30 AM EST Office Visit [facility] MEDICINE [address] [place] [address] Duane Angel MD [address] [place], [place] [phone] 01/07/2026 2:30 PM EST Office Visit [facility] OPTOMETRY [address] [place], [place] [phone] Kenia Tiara, OD [address] [place], [place] [phone] Health Maintenance Due Date Last Done Comments CT Colonography 1973 FIT DNA/Cologuard 1973 FIT 1973 FOBT 1973 Sigmoidoscopy 1973 Family Planning (PISQ) 1988 Hepatitis A Vaccines (1 of 2 - Risk 2-dose series) 1992 RSV Patients and Patients Aged 60 years or older (1 - Risk 50-74 years 1-dose series) 2023 Zoster Vaccines (1 of 2) 2023 Dental Oral Exam 04/06/2025 10/06/2024, 11/2023, 03/20/2023 Dental Prophylaxis 10/09/2025 04/07/2025, 1 12/06/2023, 02/18/2024, Additional history exists Dental X-Ray: Full Mouth 03/21/2026 03/20/2023 Disability Screening 07/10/2026 07/10/2025 SDOH Screening 07/10/2026 07/10/2025 Dental X-Ray: Bitewings 08/14/2026 08/13/20, 02/18/2024, 12/06/2023, Additional history exists Alcohol/Substance Use Screening 10/09/2026 10/09/2025 Depression Screening 10/09/2026 10/09/2025, 10/09/20 Tobacco Screening 10/13/2026 10/13/2025 Lipid Panel 10/28/2030 10/28/2025, 08/19, 08/21/2023, Additional history exists Colonoscopy 01/08/2034 01/08/2024 Colorectal Cancer Screening 01/08/2034 DTaP/Tdap/Td Vaccines (3 - Td or Tdap) 02/18/2034 02/19/2024, 08/02/2012 Hepatitis B Vaccines Completed 08/11/2013, 08/02/2012, 12/27/2011 [...] FT4 Routine 10/28/2025 2 :43 PM EST GLUCOSE Routine 10/28/2025 2:43 PM EST HEPATIC FUNCTION PANEL Routine 10/28/2025 2:43 PM EST COMPREHENSIVE METABOLIC PANEL Routine 10/28/2025 2:43 PM EST CBC WITH AUTO DIFFERENTIAL Routine 10/28/2025 2:43 PM EST BASIC METABOLIC PANEL Routine 10/28/2025 2:43 PM EST Routine history and physical examination of adult Mood disorder (CMS/HCC) Alcohol use disorder, severe, in sustained remission (CMS/HCC) (HCC) Chronic gastroesophageal reflux disease Chronic constipation Chronic pain of both shoulders Tobacco dependence Onychomycosis Balanitis BMI 33.0-33.9,adult Dietary counseling Exercise counseling CBC Routine 10/28/2025 2:43 PM EST Routine history and physical examination of adult Mood disorder (CMS/HCC) Alcohol use disorder, severe, in sustained remission (CMS/HCC) (HCC) Chronic gastroesophageal reflux disease Chronic constipation Chronic pain of both shoulders Tobacco dependence Onychomycosis Balanitis BMI 33.0-33.9,adult Dietary counseling Exercise counseling HEMOGLOBIN A1C Routine 10/28/2025 2:43 PM EST Routine history and physical examination of adult Mood disorder (CMS/HCC) Alcohol use disorder, severe, in sustained remission (CMS/HCC) (HCC) Chronic gastroesophageal reflux disease Chronic constipation Chronic pain of both shoulders Tobacco dependence Onychomycosis Balanitis BMI 33.0-33.9,adult Dietary counseling Exercise counseling HEPATIC FUNCTION PANEL Routine 10/28/2025 2:43 PM EST Routine history and physical examination of adult Mood disorder (CMS/HCC) Alcohol use disorder, severe, in sustained remission (CMS/HCC) (HCC) Chronic gastroesophageal reflux disease Chronic constipation Chronic pain of both shoulders Tobacco dependence Onychomycosis Balanitis BMI 33.0-33.9,adult Dietary counseling Exercise counseling VITAMIN D,25-OH,TOTAL,IA Routine 10/28/2025 2:43 PM EST Routine history and physical examination of adult Mood disorder (CMS/HCC) Alcohol use disorder, severe, in sustained remission (CMS/HCC) (HCC) Chronic gastroesophageal reflux disease Chronic constipation Chronic pain of both shoulders Tobacco dependence Onychomycosis Balanitis BMI 33.0-33.9,adult Dietary counseling Exercise counseling TSH Routine 10/28/2025 2:43 PM EST Routine history and physical examination of adult Mood disorder (CMS/HCC) Alcohol use disorder, severe, in sustained remission (CMS/HCC) (HCC) Chronic gastroesophageal reflux disease Chronic constipation Chronic pain of both shoulders Tobacco dependence Onychomycosis Balanitis BMI 33.0-33.9,adult Dietary counseling Exercise counseling LIPID PANEL, STANDARD Routine 10/28/2025 2:43 PM EST Routine history and physical examination of adult Mood disorder (CMS/HCC) Alcohol use disorder, severe, in sustained remission (CMS/HCC) (HCC) Chronic gastroesophageal reflux disease Chronic constipation Chronic pain of both shoulders Tobacco dependence Onychomycosis Balanitis BMI 33.0-33.9,adult Dietary counseling Exercise counseling T4, FREE Routine 10/28/2025 2:43 PM EST Routine history and physical examination of adult Mood disorder (CMS/HCC) Alcohol use disorder, severe, in sustained remission (CMS/HCC) (HCC) Chronic gastroesophageal reflux disease Chronic constipation Chronic pain of both shoulders Tobacco dependence Onychomycosis Balanitis BMI 33.0-33.9,adult Dietary counseling Exercise counseling 14 EXTRACTION, ERUPTED TOOTH OR EXPOSED ROOT (ELEVATION/FORCEPS REMOVAL) Routine 10/13/2025 1:00 PM EST CASE PRESENTATION, DETAILED AND EXTENSIVE TREATMENT PLANNING Routine 10/13/2025 1:00 PM EST US ABDOMEN COMPLETE Routine 09/21/2025 1 2:39 PM EST Alcohol use disorder, severe, in sustained remission (CMS/HCC) (HCC) BITEWING - SINGLE RADIOGRAPHIC IMAGE Routine 08/13/2025 1:00 PM EDT INTRAORAL - PERIAPICAL FIRST RADIOGRAPHIC IMAGE Routine 08/13/2025 1:00 PM EDT PALLIATIVE (EMERGENCY) TREATMENT OF DENTAL PAIN - MINOR PROCEDURE Routine 08/13/2025 1:00 PM EDT PROPHYLAXIS - ADULT Routine 04/07/2025 2 :00 PM EDT PERIODIC ORAL EVALUATION - ESTABLISHED PATIENT Routine 10/06/2024 1:00 PM EST HIV 1/2 ANTIGEN/ANTIBODY, FOURTH GENERATION W/RFL Routine [...] Recently Relevant to Health Maintenance Results * Hold Lavender - Possible Hematology (10/28/2025 2:43 PM EST) Hold Lavender - Possible Hematololgy SEE NOTE [facility] Comment:Specimen will be hel d untested for 8 hours. Call Hematologyif testing is desired. 10/28/2025 2:43 PM EST 10/28/2025 4:37 PM EST us Generic External Data Provider HISTORICAL/NON OR DERABLE LABS Final Result [facility] [address] [place] [phone] * Vitamin D, 25-Hydroxy, Total, Immunoassay (10/28/2025 2:43 PM EST) Vitamin D 25-OH Total 46.0 >30 ng/mL [facility] Comment: Health Based Reference Values*< 20 ng/mL [id number] ng/mL Insufficient> 30 ng/mL Sufficient*Madan ROSS. N Engl J Med. 2007;357:266-280There is no well-established upper level of normal vitamin Dlevels. Some laboratories use 50 ng/mL as an upper limit ofnormal. However, toxicity is patient-dependent and may occurat any level. Careful correlation with the patient'spresentation is necessary and, if there is concern forvitamin D toxicity, treatment should be consideredirrespective of the serum level.Care must be taken in interpreting Vitamin D results fromdifferent laboratories and methodologies. Published datademonstrated that results from patients undergoinghemodialysis may show a negative bias when tested withvarious automated 25-OH vitamin D assays when compared toLC-MS/MS.When testing samples from patients whose predominant form ofVitamin D is Vitamin D2, such as patients receiving VitaminD2 supplementation, results that are subtherapeutic shouldbe confirmed with another method such as LC-MS/MS. Blood Venous blood specimen / Unknown 10/28/2025 2:43 PM EST 10/28/2025 4:14 PM EST us Gracia Interiano DO LAB BLOOD ORDERABLES Final R esult Performing Organization Address [facility]/ZIP Co de Phone Number [facility] [address] [place] [phone] * TSH with Reflex to Free T4 (10/28/2025 2:43 PM EST) Pathologist [facility] [place] TSH reflex Free T4 2.82 0.32 - 4.0 uIU/mL [facility] 10/28/2025 2:43 PM EST 10/28/2025 4:14 PM EST us Generic External Data Provider LAB BLOOD ORDERAB LES Final Result Performing Organization Address [facility] Co de Phone Number [facility] [address] [place] [phone] * (ABNORMAL) CBC auto differential (10/28/2025 2:43 PM EST) White Blood Count 8.0 4.8 - 10.8 X10*3/uL [facility] Red Blood Count 4.76 4.60 - 5.80 X10*6/uL [facility] Hemoglobin 14.1 14.0 - 18.0 g/dl [facility] Hematocrit 40.7(L) 42.0 - 52.0 % [facility] Mean Corpuscular Volume 85.5 80.0 - 98.0 fL [facility] Mean Corpuscular Hemoglobin 29.6 27.0 - 33.0 pg [facility] Mean Corpuscular HGB Conc 34.6 31.0 - 36.0 g/dl [facility] Red Cell Distribution Width 12.6 11.0 - 16.0 % [facility] Platelet Count 280 160 - 400 X10*3/uL [facility] Mean Platelet Volume 11.0 9.4 - 12.4 fL [facility] Neutrophils Percent Auto 53.4 45 - 73 % [facility] Imm Gran Pct Auto 0.4 0.0 - 0.4 % [facility] Lymphocytes Percent Auto 32.9 20 - 40 % [facility] Monocytes Percent Auto 8.9 2 - 11 % [facility] Eosinophils Percent Auto 3.6 0 - 4 % [facility] Basophils Percent Auto 0.8 0 - 2 % [facility] NRBC Pct Auto 0.0 0.0 - 0.2 /100WBC [facility] Neutrophils Absolute Auto 4.3 2.0 - 8.3 x10*3/uL [facility] Imm Gran Abs Auto 0.03 0.00 - 0.03 X10*3/uL [facility] Lymphocytes Absolute Auto 2.6 1.2 - 4.9 X10*3/uL [facility] Monocytes Absolute Auto 0.7 0.1 - 1.2 X10*3/uL [facility] Eosinophils Absolute Auto 0.3 0.0 - 0.4 X10*3/uL [facility] Basophils Absolute Auto 0.1 0.0 - 0.2 X10*3/uL [facility] NRBC Abs Auto 0.000 0.0 - 0.012 X10*3/uL [facility] 10/28/2025 2:43 PM EST 10/28/2025 4:11 PM EST us Generic External Data Provider LAB BLOOD ORDERAB LES Final Result [facility] [address] [place] [address] [phone] * (ABNORMAL) CBC (10/28/2025 2:43 PM EST) White Blood Count 8.4 4.8 - 10.8 X10*3/uL [facility] Red Blood Count 4.68 4.60 - 5.80 X10*6/uL [facility] Hemoglobin 14.3 14.0 - 18.0 g/dl [facility] Hematocrit 39.6(L) 42.0 - 52.0 % [facility] Mean Corpuscular Volume 84.6 80.0 - 98.0 fL [facility] Mean Corpuscular Hemoglobin 30.6 27.0 - 33.0 pg [facility] Mean Corpuscular HGB Conc 36.1(H) 31.0 - 36.0 g/dl [facility] Red Cell Distribution Width 12.8 11.0 - 16.0 % [facility] Platelet Count 273 160 - 400 X10*3/uL [facility] Mean Platelet Volume 11.1 9.4 - 12.4 fL [facility] NRBC Pct Auto 0.0 0.0 - 0.2 /100WBC [facility] NRBC Abs Auto 0.000 0.0 - 0.012 X10*3/uL [facility] Blood Venous blood specimen / Unknown 10/28/2025 2:43 PM EST 10/28/2025 4:14 PM EST us Gracia Interiano DO LAB BLOOD ORDERABLES Final R esult [facility] [address] [place] [phone] * TSH (10/28/2025 2:43 PM EST) Thyroid Stimulating Hormone 2.86 0.32 - 4.0 uIU/mL [facility] Comment:Note: A sustained TS H level above 2.5 uIU/mL may warrant further investigation. TSH 3rd Generation ([employer]) Blood Venous blood specimen / Unknown 10/28/2025 2:43 PM EST 10/28/2025 4:14 PM EST Gracia Interiano [employer] LAB BLOOD ORDERABLES Final R esult Performing Organization Address City/[facility]/ZIP Co de Phone Number [facility] [address] [place] [phone] * T4, Free (10/28/2025 2:43 PM EST) Free T4 (Free Thyroxine) 0.87 0.71 - 1.85 ng/dL [facility] Blood Venous blood specimen / Unknown 10/28/2025 2:43 PM EST 10/28/2025 4:14 PM EST Gracia Interiano [employer] LAB BLOOD ORDERABLES Final R esult Performing Organization Address [facility]/[facility] Co de Phone Number [facility] [address] [place] [phone] * Hemoglobin A1c (10/28/2025 2:43 PM EST) Hemoglobin A1c 5.4 <6.0 % [facility] Comment:Hemoglobin A1C Refer ence Range Adults: 4.8 - 6.0 % Non diabetic: < 6.0 % Goal: < 7.0 %Additional Action Suggested: > 8.0 %Note: Hemoglobin A1c results are invalid for patients with abnormal amounts of HbF. Blood transfusions may impact the HbA1c concentration in the patient sample. Estimated Average Glucose 108 mg/dL [facility] Comment:eAG = Estimated ave rage glucose which is %A1C expressed asaverage glucose, using the formula of the Z5H-YfahyuhAbbmxgb Glucose study (ADAG), Diabetes Care, Vol.31,#8,Jun. 2007 Blood Venous blood specimen / Unknown 10/28/2025 2:43 PM EST 10/28/2025 4:14 PM EST Gracia Interiano [employer] LAB BLOOD ORDERABLES Final R esult Performing Organization Address [facility]/ZIP Co de Phone Number [facility] [address] [place] [phone] * (ABNORMAL) Glucose (10/28/2025 2:43 PM EST) Pathologist [facility] [place] Glucose Fasting 103(H) 60 - 99 mg/dL [facility] Comment:A fasting glucose fr om 100-125 mg/dl is considered impaired(pre-diabetes). 10/28/2025 2:43 PM EST 10/28/2025 4:14 PM EST Generic External Data Provider LAB BLOOD ORDERAB LES Final Result Performing Organization Address [facility] Co de Phone Number [facility] [address] [place] [phone] * Hepatic Function Panel (10/28/2025 2:43 PM EST) Only the most recent of2 resultswithin the time period is included. Pathologist [facility] Bilirubin, Direct 0.1 0.0 - 0.5 mg/dL [facility] 10/28/2025 2:43 PM EST 10/28/2025 4:14 PM EST [email or web address] External Data Provider LAB BLOOD ORDERAB LES Final Result Performing Organization Address [facility] de Phone Number [facility] [address] [place] [phone] * (ABNORMAL) Lipid Panel, Standard (10/28/2025 2:43 PM EST) Pathologist [facility] Triglycerides 345(H) <150 mg/dL [facility] Comment:Slight Lipemia.Craig able Triglyceride: less than 150 mg/dLBorderline High Triglyceride 150-199 mg/dLHigh Triglyceride: 200-499 mg/dLVery High Triglyceride: greater than or equal to 5OO mg/dL Cholesterol 182 <200 mg/dL [facility] Comment:Desirable Cholestero l: less than 200 mg/dLBorderline High Cholesterol: 200-239 mg/dLHigh Cholesterol: greater than 239 mg/dL LDL Cholesterol Calculated 72 <100 mg/dL [facility] Comment:Desirable LDL: less than 100 mg/dLNear Optimal/Above Optimal LDL: 110- 129 mg/dLBorderline High LDL: 130-159 mg/dLHigh LDL: 160-189 mg/dLVery High LDL: greater than or equal to 190 mg/dL HDL Cholesterol 41 >40 mg/dL [facility] Comment:Desirable HDL: great er than 40 mg/dL Note: This HDL assay may give artificially low results in patients with liver disease. Blood Venous blood specimen / Unknown 10/28/2025 2:43 PM EST 10/28/2025 4:14 PM EST us Gracia Interiano DO LAB BLOOD ORDERABLES Final R esult [facility] [address] [place] [phone] * (ABNORMAL) Comprehensive Metabolic Panel (10/28/2025 2:43 PM EST) Sodium 141 135 - 145 mmol/L [facility] [facility] Potassium 4.0 3.3 - 5.1 mmol/L [facility] Chloride 107 96 - 108 mmol/L [facility] Carbon Dioxide 25 22 - 29 mmol/L [facility] Anion Gap 13 12 - 20 [facility] Urea Nitrogen (BUN) 14 9 - 16 mg/dL [facility] Creatinine, Serum 0.87 0.5 - 1.4 mg/dL [facility] Estimated Glomerular Filt Rate >60 [facility] Comment:Chronic Kidney Disea se: Estimated GFR < 60 mL/min/[id number] Kidney Disease: Estimated GFR < 15 mL/min/1.73m2 Glucose 103 60 - 115 mg/dL [facility] Calcium 9.2 8.4 - 10.2 mg/dL [facility] Bilirubin, Total 0.3 0.0 - 1.0 mg/dL [facility] Aspartate Amino Transferase 47(H) 5 - 37 U/L [facility] Alanine Aminotransferase 68(H) 0 - 40 U/L [facility] Total Protein 7.2 6.5 - 8.0 g/dL [facility] Albumin Level 4.6 3.5 - 5.0 g/dL [facility] Alkaline Phosphatase 88 39 - 117 U/L [facility] 10/28/2025 2:43 PM EST 10/28/2025 4:14 PM EST us Generic External Data Provider LAB BLOOD ORDERAB LES Final Result Performing Organization Address [facility] [place] Co de Phone Number [facility] [address] [place] [address] [phone] * Basic Metabolic Panel (10/28/2025 2:43 PM EST) Sodium 140 135 - 145 mmol/L [facility] Potassium 3.9 3.3 - 5.1 mmol/L [facility] Chloride 107 96 - 108 mmol/L [facility] Carbon Dioxide 24 22 - 29 mmol/L [facility] Anion Gap 13 12 - 20 [facility] Urea Nitrogen (BUN) 14 9 - 16 mg/dL [facility] Creatinine, Serum 0.83 0.5 - 1.4 mg/dL [facility] Estimated Glomerular Filt Rate >60 [facility] Comment:Chronic Kidney Disea se: Estimated GFR < 60 mL/min/[id number] Kidney Disease: Estimated GFR < 15 mL/min/1.73m2 Glucose 103 60 - 115 mg/dL [facility] Calcium 9.1 8.4 - 10.2 mg/dL [facility] Blood Venous blood specimen / Unknown 10/28/2025 2:43 PM EST 10/28/2025 4:14 PM EST us Gracia Interiano DO LAB BLOOD ORDERABLES Final R esult Performing Organization Address [facility] [place] Co de Phone Number [facility] [address] [place] [address] [phone] * US Abdomen Complete (09/21/2025 12:39 PM EST) Anatomical Region Laterality Modality Abdomen Ultrasound 09/21/2025 12:3 9 PM EST Narrative 09/21/2025 12:41 PM EST [address] [address] Ultrasound Report Signed Patient: Eddie Worthington MR#: [id number] : 1975 Acct:[id number] Age/Sex: 50 / M ADM Date: 09/21/25 Loc: HO.US Attending Dr: Gracia Interiano DO Ordering Physician: Gracia Interiano DO Date of Service: 09/21/25 Procedure(s): US abdomen complete Accession Number(s): [id number] cc: Gracia Interiano DO Reason for Exam: h/o alcohol dependence CLINICAL HISTORY: h o alcohol dependence US abdomen complete Comparison: None provided Findings: The visualized pancreas head is normal. The visualized aorta and inferior vena cava are normal caliber. The liver is normal in size, right lobe length is 16.8 cm. Diffusely increased echogenicity of the liver parenchyma. No discrete lesion is visualized in the imaged liver. No intrahepatic bile duct dilatation. The common duct is 2 mm in diameter. The gallbladder is normal. Negative sonographic Pastrana sign. The main portal vein is patent with antegrade flow. The right kidney is normal, 10.8 cm in length. The left kidney is normal, 11.2 cm in length. The spleen is enlarged, 14.0 cm in length. No splenic lesion is seen. No free fluid in the abdomen. Impression: 1. Echogenic liver parenchyma is nonspecific, commonly seen in steatosis or chronic hepatitis. 2. Splenomegaly. This document has been electronically signed by: Kaya Clark MD on 09/21/2025 12:39:05 Dictated By: Kaya Clark MD Signed By: <Electronically signed by Kaya Clark MD in OV> 09/21/25 1240 DD/ 1239 TD/TT: 09/21/25 1239 Hydrodynamicist: Procedure Note Donotuseinterpreter, Image - 09/21/[address] [address] Ultrasound Report Signed Patient: Eddie Worthington RMR#: [id number] : 1975Acct:[id number] Age/Sex: 50 / MADM Date: 09/21/25 Loc: HO.US Attending Dr: Gracia Interiano DO Ordering Physician: Gracia Interiano DO Date of Service: 09/21/25 Procedure(s): US abdomen complete Accession Number(s): [id number] cc: Gracia Interiano DO Reason for Exam: h/o alcohol dependence CLINICAL HISTORY: h o alcohol dependence US abdomen complete Comparison: None provided Findings: The visualized pancreas head is normal. The visualized aorta and inferior vena cava are normal caliber. The liver is normal in size, right lobe length is 16.8 cm. Diffusely increased echogenicity of the liver parenchyma. No discrete lesion is visualized in the imaged liver. No intrahepatic bile duct dilatation. The common duct is 2 mm in diameter. The gallbladder is normal. Negative sonographic Pastrana sign. The main portal vein is patent with antegrade flow. The right kidney is normal, 10.8 cm in length. The left kidney is normal, 11.2 cm in length. The spleen is enlarged, 14.0 cm in length. No splenic lesion is seen. No free fluid in the abdomen. Impression: 1. Echogenic liver parenchyma is nonspecific, commonly seen in steatosis or chronic hepatitis. 2. Splenomegaly. This document has been electronically signed by: Kaya Clark MD on 09/21/2025 12:39:05 Dictated By: Kaya Clark MD Signed By: <Electronically signed by Kaya Clark MD in OV> 09/21/25 1240 DD/ 1239 TD/TT: 09/21/25 1239 Hydrodynamicist: us Gracia Interiano DO G US PROCEDURES Edited Res ult - Final * HIV-1/2 Antigen and Antibodies, Fourth Generation, with Reflexes (08/07/2024 3:36 PM EDT) HIV AB/AG Nonreactive Nonreactive [facility] Comment:HIV-1 p24 Ag and/or HIV-1/HIV-2 Ab not detected.A test result that is nonreactive does not exclude thepossibility of exposure to or infection with HIV-1 and/orHIV-2. Nonreactive results in this assay for individualswith prior exposure to HIV-1 and/or HIV-2 may be due toantigen and antibody levels that are below the limit ofdetection of this assay.The [email or web address] Alinity HIV Ag/Ab Combo assay result andsupplemental assay results should be interpreted inconjunction with the patient's clinical presentation,history and other laboratory results. If the results areinconsistent with clinical evidence, additional testing issuggested to confirm the result. Blood Venous blood specimen / Unknown 08/07/2024 3:36 PM EDT 08/07/2024 4:17 PM EDT Gracia Interiano DO LAB BLOOD ORDERABLES Final R esult [facility] [address] [place] [phone] * Hm Colonoscopy (01/08/2024 1:38 PM EST) Historical Provider HEALTH MAINTENANCE Final Result from Last 3 Months or Most Recently Relevant to Health Maintenance Insurance [facility] - HSN PARTIAL (MEDICAID) Care Teams Automation Control Technician Relationship Specialty Start Date End Date Gracia Interiano DO [address] [place] [address] PCP - General Family Medicine 02/01/12 Heath Mae FNP [address] [place] [address] Nurse Practitioner Family Medicine 10/18/23
--- OUTSIDE RECORDS SUMMARY | 2025-10-28 22:58 | XMS_ITS | Encounter Summary ---
Author Organization [employer] Address [address] [facility] [address] [place] [address] Care Team Providers Care Terrazzo Roller Name Role Phone Laisha Gracia Primary Care Provider + [phone] Heath Mae Unavailable Unavailable Reason for Visit * Reason Onset Date Comments cxn due to weather wants to rs 12/04/2023 Encounter Details Date Type Department Care Team (Late st Contact Info) Description 12/04/2023 Telephone [facility] [address] [place], [place] [phone] Monica Arevalo [address] [place], [place] [phone] cxn due to weather wants to rs [...] appt. Unable to rs scaling appts in [facility] center. Called [facility] non answer. Patient has bee informed that message will be sent to [facility] and they will receive a call to byron REESE documented in this encounter Plan of Treatment Upcoming Encounters Date Type Department Care Team (Late st Contact Info) Description 11/04/2025 3:30 PM EST Office Visit [facility] [address] [place] [phone] Gracia Interiano DO [address] [place] [address] 11/17/2025 9:30 AM EST Office Visit [facility] [address] [place] [address] Duane Angel MD [address] [place] [address] 01/07/2026 2:30 PM EST Office Visit [facility] [address] [place] [address] Tiara Aquino, OD [address] [place] [address] documented as of this encounter Visit Diagnoses Not on filedocumented in this encounter Additional Health Concerns Assessment Noted Time PHQ-9 Depression Total Score: 2 10/18/20 23 2:35 PM EST documented as of this encounter Care Teams Terrazzo Roller Relationship Specialty Start Date End Date Gracia Interiano DO [address] [place] [address] PCP - General Family Medicine 02/01/12 Heath Mae FNP [address] [place] [address] Nurse Practitioner Family Medicine 10/18/23 documented as of this encounter
--- OUTSIDE RECORDS SUMMARY | 2025-10-28 22:58 | XMS_ITS | Encounter Summary ---
Author Organization [employer] Address [address] [facility] [address] [facility] [address] [place] [address] Care Team Providers Care Bending Machine Operator Name Role Phone Gracia Interiano DO Primary Care Provider + [phone] Heath Mae Unavailable Unavailable Reason for Visit * Reason Comments Med Refill Encounter Details Date Type Department Care Team ([facility] st Contact Info) Description 05/09/2025 Refill [facility] [address] [place], [place] [phone] Gracia Interiano DO [address] [place] [address] Possible exposure to STD Social History Tobacco [...] Description 11/04/2025 3:30 PM EST Office Visit [facility] [address] [place] [phone] Gracia Interiano DO [address] [place] [address] 11/17/2025 9:30 AM EST Office Visit [facility] [address] [place] [phone] Duane Angle MD [address] [place] [address] 01/07/2026 2:30 PM EST Office Visit [facility] OPTOMETRY [address] [place] [address] Tiara Aquino, OD [address] [place] [address] documented as of this encounter Visit Diagnoses Diagnosis Possible exposure to STD documented in this encounter Additional Health Concerns Assessment Noted Time PHQ-9 Depression Total Score: 3 05/12/20 4:01 PM EDT documented as of this encounter Care Teams Bending Machine Operator Relationship Specialty Start Date End Date Gracia Interiano DO [address] [place] [phone] PCP - General Family Medicine 02/01/12 Heath Mae FNP [address] [place] [address] Nurse Practitioner Family Medicine 10/18/23 documented as of this encounter
--- OUTSIDE RECORDS SUMMARY | 2025-10-28 22:58 | XMS_ITS | Encounter Summary ---
Author Organization [employer] Address [address] [facility] [address] [place] [address] Care Team Providers Care Logging Tractor Operator Name Role Phone LaishaGracia Primary Care Provider + [phone] Heath Mae Unavailable Unavailable Encounter Details Date Type Department Care Team (Late st Contact Info) Description 01/22/2025 Orders Only [facility] [address] [place], [place] [phone] Provider, MD Kari Social History Tobacco Use [...] Description 11/04/2025 3:30 PM EST Office Visit [facility] [address] [place] [address] Gracia Interiano DO [address] [place] [address] 11/17/2025 9:30 AM EST Office Visit [facility] [address] [place] [address] Duane Angel MD [address] [place] [address] 01/07/2026 2:30 PM EST Office Visit [facility] OPTOMETRY [address] [place] [address] TarkaTiara, OD [address] [place] [address] documented as of this encounter Procedures Procedure [...] documented as of this encounter Care Teams Logging Tractor Operator Relationship Specialty Start Date End Date Gracia Interiano DO [address] [place] [address] PCP - General Family Medicine 02/01/12 Heath Mae FNP [address] [place] [address] Nurse Practitioner Family Medicine 10/18/23 documented as of this encounter
--- OUTSIDE RECORDS SUMMARY | 2025-10-28 22:58 | XMS_ITS | Encounter Summary ---
Author Organization [employer] Address [address] [facility] [address] [facility] [address] [place] [address] Care Team Providers Care Hot Dog Vender Name Role Phone ValerieGracia joseph Primary Care Provider + [phone] Heath Mae Unavailable Unavailable Encounter Details Date Type Department Care Team (Latest Contact Info) Description 10/26/2025 Travel Social History Tobacco Use Types Packs/Day Years [...] Description 11/04/2025 3:30 PM EST Office Visit [facility] [address] [place] [address] Gracia Interiano DO [address] [place] [address] 11/17/2025 9:30 AM EST Office Visit [facility] [address] [place] [phone] Duane Angel MD [address] [place] [address] 01/07/2026 2:30 PM EST Office Visit [facility] [address] [place] [address] TarkaTiara, OD [address] [place] [address] documented as of this encounter Visit Diagnoses Not on filedocumented in this encounter Additional Health Concerns Assessment Noted Time PHQ-9 Depression Total Score: 2 10/09/20 25 3:10 PM EST documented as of this encounter Care Teams Hot Dog Vender Relationship Specialty Start Date End Date Gracia Interiano DO [address] [place] [phone] PCP - General Family Medicine 02/01/12 Heath Mae FNP [address] [place] [address] Nurse Practitioner Family Medicine 10/18/23 documented as of this encounter
[2025-10-29 04:30] LABS: HIV Num 1 0.08 S/CO (0.00-0.99); ~HepC Num1 11.64 S/CO (0.00-0.79); ~Hepatitis C Antibody Reactive (Nonreactive)
== END 2025-10-28 14:36 | disposition home or self-care (01) ==
LOC: HO.HHCL 14:35
PROVIDERS: PCP Family Medicine; Referring Provider Registered Nurse Psychiatric/Mental Health; Visit Provider Family Medicine
DX: Z00.00 Encounter for general adult medical examination without abnormal findings (principal); F39 Unspecified mood [affective] disorder; Z79.899 Other long term (current) drug therapy; F10.21 Alcohol dependence, in remission; K21.9 Gastro-esophageal reflux disease without esophagitis; K59.09 Other constipation; M25.511 Pain in right shoulder; G89.29 Other chronic pain; M25.512 Pain in left shoulder; F17.200 Nicotine dependence, unspecified, uncomplicated; L91.8 Other hypertrophic disorders of the skin; G47.30 Sleep apnea, unspecified; B35.1 Tinea unguium; N48.1 Balanitis; Z68.33 Body mass index [BMI] 33.0-33.9, adult; Z71.3 Dietary counseling and surveillance; Z71.82 Exercise counseling; Z11.4 Encounter for screening for human immunodeficiency virus [HIV]; Z11.59 Encounter for screening for other viral diseases
CPT/HCPCS: 36415; 80048; 80053; 80061; 80076; 82248; 82306; 83036; 84439; 84443; 85025; 85027; 86592; 86803; 87389; 87522